=== PATIENT | female | born 1995 | race Caucasian/White ===

== ENCOUNTER → 2018-04-27 11:06 | Outpatient (CLI) | payer BC, SELFPAY ==
[2018-04-27 16:24] LABS: hCG Titer Quant., Serum 16742 mIU/mL (<9 non-preg)
== END ==
PROVIDERS: Visit Provider Obstetrics & Gynecology
DX: O20.0 Threatened abortion (principal)
CPT/HCPCS: 36415; 84702

== ENCOUNTER → 2018-04-29 10:08 | Outpatient (CLI) | payer BC, SELFPAY | PROVIDERS: Visit Provider Obstetrics & Gynecology | DX: O20.0 Threatened abortion (principal) | CPT/HCPCS: 36415; 84702 ==

== ENCOUNTER → 2018-05-12 10:50 | Outpatient (CLI) | payer OTHER, BC, SELFPAY ==
[2018-05-12 13:31] LABS: Chlamydia Trachomatis by PCR Negative (Negative); Neisserai gonorrhoeae by PCR Negative (Negative); Probe Check PASS; Sample Adequacy Control PASS; Specimen Processing Control PASS
== END ==
PROVIDERS: Visit Provider Obstetrics & Gynecology
DX: Z11.3 Encounter for screening for infections with a predominantly sexual mode of transmission (principal); Z34.81 Encounter for supervision of other normal pregnancy, first trimester
CPT/HCPCS: 87491; 87591

== ENCOUNTER → 2018-06-13 10:05 | Outpatient (CLI) | payer OTHER, BC, SELFPAY ==
[2018-06-13 12:41] LABS: Color, Urine Yellow (Yellow); Glucose, Dipstick Normal (Normal); Ketone-Dipstick Negative (Negative); Leukocyte Esterase-Dipstick 500 /ul (Negative); Nitrite-Dipstick Negative (Negative); Occult Blood-Urine Negative /ul (Negative); Protein-Dipstick Negative (Negative); Urine Bilirubin Dipstick Negative (Negative); Urine Clarity Sl. Cloudy (Clear); Urine Urobilinogen Normal (Normal)
[2018-06-13 12:49] LABS: Absolute Lymphocyte Count 2.32 X10^3/ul (0.83-4.51); Absolute Neutrophil Count 6.2 X10^3/uL (2.0-7.7); Basophil# 0.04 X10^3/uL; Basophil% 0.4 % (0-1); Eosinophil# 0.07 X10^3/uL; Eosinophils% 0.8 % (0-5); Hematocrit 39.6 % (37-47); Hemoglobin 13.9 g/dl (12.0-15.0); Lymphocyte # 2.32 X10^3/ul (4.0); Lymphocyte % 25.6 % (19-41); Mean Corp Hgb Conc 35.1 g/gl (32-36); Mean Corpuscular Hgb 31.2 pg (27.0-32.0); Mean Corpuscular Volume 88.8 fL (81-99); Mean Platelet Vol. 10.2 fl (6.2-12.0); Monocyte# 0.45 X10^3/uL; Neutrophil # 6.16 X10^3/uL (2.7-7.7); Neutrophil % 67.9 % (47-70); Platelet Count 272 K/mm3 (150-450); RBC Distribution Width CV 12.3 % (11.6-14.6); RBC Distribution Width SD 39.6 fl (35.1-43.9); Red Blood Count 4.46 M/mm3 (4.2-5.4); White Blood Count 9.1 K/mm3 (4.4-11.0)
[2018-06-13 12:53] LABS: POSITIVE COUNT NO; POSITIVE DIFFERENTIAL NO; POSITIVE MORPHOLOGY NO
[2018-06-13 13:20] LABS: Thyroid Stim Hormone (TSH) 1.82 uIU/mL (0.358-3.74)
[2018-06-13 13:52] LABS: HIV - WCH Non-Reactive (Nonreactive)
[2018-06-14 10:45] LABS: HEPATITIS B SURFACE AG Negative (Negative); Hep C Antibodies <0.1 s/co ratio (0.0-0.9)
[2018-06-16 23:33] LABS: Prenatal RPR NONREACTIVE (NONREACTIVE)
== END ==
PROVIDERS: Visit Provider Obstetrics & Gynecology
DX: Z34.81 Encounter for supervision of other normal pregnancy, first trimester (principal)
CPT/HCPCS: 36415; 80307; 81002; 84443; 85025; 86703; 86762; 86803; 87340

== ENCOUNTER → 2018-08-31 10:17 | Outpatient (CLI) | payer OTHER, SELFPAY ==
[2018-08-31 10:38] LABS: Hematocrit 34.7 % (37-47); Hemoglobin 11.9 g/dl (12.0-15.0); Mean Corp Hgb Conc 34.3 g/gl (32-36); Mean Corpuscular Hgb 30.9 pg (27.0-32.0); Mean Corpuscular Volume 90.1 fL (81-99); Mean Platelet Vol. 9.1 fl (6.2-12.0); Platelet Count 258 K/mm3 (150-450); RBC Distribution Width SD 42.5 fl (35.1-43.9); Red Blood Count 3.85 M/mm3 (4.2-5.4); White Blood Count 8.9 K/mm3 (4.4-11.0)
[2018-08-31 10:42] LABS: Scan Indicated on CBC? Y/N NO
[2018-08-31 11:04] LABS: AST(SGOT) 12 U/L (15-37); Alanine Aminotransfer ALT/SGPT 20 U/L (13-56); Albumin, Serum 2.9 g/dL (3.2-5.0); Alkaline Phosphatase 72 U/L (45-117); Bilirubin, Direct 0.07 mg/dL (0.00-0.30); Globulin 3.2 g/dL (2.2-4.2); Protein, Total 6.1 g/dL (6.4-8.2)
== END ==
PROVIDERS: Visit Provider Obstetrics & Gynecology
DX: R10.11 Right upper quadrant pain (principal); R10.33 Periumbilical pain
CPT/HCPCS: 36415; 80076; 85027

== ENCOUNTER → 2018-10-10 | Outpatient (CLI) | payer OTHER, SELFPAY ==
[2018-10-10 10:57] LABS: Hematocrit 35.4 % (37-47); Hemoglobin 12.3 g/dl (12.0-15.0); Mean Corp Hgb Conc 34.7 g/gl (32-36); Mean Corpuscular Hgb 30.8 pg (27.0-32.0); Mean Corpuscular Volume 88.5 fL (81-99); Mean Platelet Vol. 9.7 fl (6.2-12.0); Platelet Count 285 K/mm3 (150-450); RBC Distribution Width CV 12.2 % (11.6-14.6); RBC Distribution Width SD 38.5 fl (35.1-43.9); White Blood Count 11.6 K/mm3 (4.4-11.0)
[2018-10-10 11:02] LABS: Scan Indicated on CBC? Y/N NO
[2018-10-10 11:10] LABS: Glucose Challenge Gest 1H 50g 131 mg/dL (70-140)
== END | disposition home or self-care (01) ==
PROVIDERS: Visit Provider Obstetrics & Gynecology
DX: Z34.83 Encounter for supervision of other normal pregnancy, third trimester (principal)
CPT/HCPCS: 36415; 82950; 85027; 86850

== ENCOUNTER → 2018-11-08 15:09 | Outpatient (CLI) | payer OTHER, BC, SELFPAY | PROVIDERS: Visit Provider Obstetrics & Gynecology | DX: O23.43 Unspecified infection of urinary tract in pregnancy, third trimester (principal); Z3A.00 Weeks of gestation of pregnancy not specified | CPT/HCPCS: 87086; 87088 ==

== ENCOUNTER → 2018-11-30 16:22 | Outpatient (CLI) | payer OTHER, BC, SELFPAY | PROVIDERS: Visit Provider Obstetrics & Gynecology | DX: Z36.85 Encounter for antenatal screening for Streptococcus B (principal) | CPT/HCPCS: 87081 ==

== ENCOUNTER 2018-12-25 15:00 | Outpatient (CLI) | payer OTHER, SELFPAY ==
[2018-12-25 15:21] VITALS: BMI 35.1
[2018-12-25 16:05] LABS: ROM Internal Control Test YES-OK TO RESULT pt. (Internal QC); ROM Patient Test Negative (Negative)
--- NOTE | 2019-01-27 09:25 | OB.TRI.NOTE ---
- Problem List (1) False labor after 37 completed weeks of gestation Status: Acute History of Present Illness Date of Service: 12/25/18 Was patient seen by the physician?: No Reason For Visit: r/o labor Date of Service: 12/25/18 Final HAILEY: 12/27/18 Final HAILEY Source: US <20 weeks Gestational age: 39 weeks 5 days History of Present Illness: 23yo with c/o painful contractions. Allergies latex Allergy (Verified 12/26/18 07:09) Hives - Pertinent Past Medical History Medical History: Past Medical History (Last Updated 12/26/18 @ 06:23 by Bernice Galo MD) Asthma Laboratory Studies: Laboratory Tests 12/25/18 Range/Units 15:15 Vag Amniotic Fld Detect Negative (Negative) Physical Exam Cervix Dilation (cm): 2 - per ANA [place] Station: -3 Effacement (%): 80 NST - FHR Rate Baby A Baseline: 135 Variability:: Moderate Accelerations:: 15 x 15 Decelerations:: None NST Reactive:: Yes FHR Category:: Category I Uterine Activity:: 05/19 Impression/Plan Reactive NST, Cat I FHR FAlse labor > 37wga d/c home
== END 2018-12-25 16:30 | disposition home or self-care (01) ==
LOC: WPOUT 15:09 → OBT 15:10
PROVIDERS: Visit Provider Obstetrics & Gynecology
DX: O47.1 False labor at or after 37 completed weeks of gestation (principal); Z3A.39 39 weeks gestation of pregnancy; Z91.040 Latex allergy status
CPT/HCPCS: 59025; 59050; 84112; 99218; G0378

== ENCOUNTER 2018-12-25 18:39 | Outpatient (CLI) | payer OTHER, BC, SELFPAY ==
[2018-12-25 15:21] VITALS: BMI 35.1
[2018-12-25 18:45] VITALS: BMI 35.1
[2018-12-25 19:18] LABS: ROM Internal Control Test YES-OK TO RESULT pt. (Internal QC); ROM Patient Test Negative (Negative)
[2018-12-25 20:41] VITALS: BP 134/85; PULSE 66; RESP 18; TEMP 36.8; O2SAT 98
--- NOTE | 2019-01-27 09:33 | OB.TRI.NOTE ---
History of Present Illness Date of Service: 12/25/18 Was patient seen by the physician?: No Reason For Visit: RULE OUT SROM Final HAILEY: 12/27/18 Final HAILEY Source: US <20 weeks Gestational age: 39 5/7wga History of Present Illness: 23yo G1 @ 39 5/7wga with c/o leaking of fluid Allergies latex Allergy (Verified 12/26/18 07:09) Hives - Pertinent Past Medical History Medical History: Past Medical History (Last Updated 12/26/18 @ 06:23 by Bernice Galo MD) Asthma Laboratory Studies: Laboratory Tests 12/25/18 Range/Units 18:45 Vag Amniotic Fld Detect Negative (Negative) Physical Exam Vitals: Vital Signs Temp Pulse Resp BP Pulse Ox 98.2 F 66 18 134/85 H 98 12/25/18 20:41 12/25/18 20:41 12/25/18 20:41 12/25/18 20:41 12/25/18 20:41 Cervix Dilation (cm): 2 - per RN exam Station: -3 Effacement (%): 80 NST - FHR Rate Baby A Baseline: 130 Variability:: Moderate Accelerations:: 15 x 15 Decelerations:: None NST Reactive:: Yes FHR Category:: Category I Uterine Activity:: 05/19 Impression/Plan 23yo G1 @ 39 5/7 wga with false labor -ROM plus negative -d/c home
== END 2018-12-25 20:45 | disposition home or self-care (01) ==
LOC: WPOUT 18:40 → WP 18:41
PROVIDERS: PCP Obstetrics & Gynecology; Visit Provider Obstetrics & Gynecology
DX: O47.1 False labor at or after 37 completed weeks of gestation (principal); Z3A.39 39 weeks gestation of pregnancy; Z91.040 Latex allergy status
CPT/HCPCS: 59025; 59050; 84112; 99218; G0378

== ENCOUNTER 2018-12-26 05:27 | Inpatient (IN) | payer OTHER, SELFPAY ==
[2018-12-25 18:45] VITALS: BMI 35.1
[2018-12-26 06:04] VITALS: BMI 35.1
[2018-12-26] MEDS: Lactated Ringers 1,000 ML 50 ML IV ×2 (06:20→18:58)
--- NOTE | 2018-12-26 06:22 | PCM.HP.OB ---
- Problem List (1) 39 weeks gestation of Status: Acute History Date of Admission: 12/26/18 Final HAILEY: 12/27/18 Final AHILEY Source: US <20 weeks Gestational age: 39 Weeks and 6 Days History of this : This is a 23 year-old, G [1], P [0], at 39 6/7 weeks gestational age with c/o leaking of fluid at 1100pm last night. + FM, + contractions. No vaginal bleeding. Medical History: Medical History (Last Updated 12/26/18 @ 06:23 by Bernice Galo MD) Asthma J45.909 Allergies latex Allergy (Verified 12/25/18 15:19) Hives Home Medications: Home Medications Beclomethasone Diprop Inhaler [Qvar 80 Mcg Inhaler] 1 puff INHALATION PRN PRN 12/25/18 Vit No.130/Iron/Folic [ Tablet] 1 ea PO 12/25/18 Number of Fetus(es): 1 NST - FHR Rate Baby A Baseline: 125 Variability:: Moderate Accelerations:: 15 x 15 Decelerations:: None NST Reactive:: Yes FHR Category:: Category I Uterine Activity:: 2-510 History Labs: Mom's Problem List Problem Status Onset Code 39 weeks gestation of Acute Z3A.39 Mom's Labs & Results 12/26/18 12/26/18 06:20 06:20 WBC 10.2 RBC 3.59 L Hgb 11.3 L Hct 31.7 L MCV 88.3 MCH 31.5 MCHC 35.6 RDW Std Deviation 41.3 RDW Coeff of Allyson 12.8 Plt Count 244 MPV 10.2 Immature Gran % (Auto) 0.600 Neut % (Auto) 71.1 H Lymph % (Auto) 20.8 [place] % (Auto) 6.5 Eos % (Auto) 0.5 Baso % (Auto) 0.5 Absolute Neuts (auto) 7.2 Absolute Lymphs (auto) 2.12 Nucleated RBC % 0 Blood Type Pending Antibody Screen Pending Course Did the patient receive Yes care? Labs Blood Type: O RH: NEGATIVE RPR/VDRL/Syphilis Nonreactive Rubella status Immune HbSAg Negative Date Done: 06/13/18 Chlamydia Negative Gonorrhea Negative HIV/AIDS Non-Reactive Group B Strep: Negative Current Obstetrical History Gestational Diabetes No Incompetent Cervix No Infertility No IUGR No Macrosomia No Hypertension/Pre-eclampsia No Placenta Previa/Abruption No PTL/PROM No Uterine anomaly No Oligohydramnios No Polyhydramnios No Multiple gestation No Past Medical History Asthma Yes: exercised induced Diabetes No Hypertension No Heart disease No Mitral valve prolapse No Neurologic/Seizure disorder/ No Migraines Kidney disease No Liver disease No Varicosities No Clotting disorders/Hx of DVT No Thyroid Dysfunction No Other medical diseases No Psychiatric disorders No Major trauma No Abnormal PAP smear No Sleep apnea No Mammogram in the last 2 years No Social History Marital Status: SINGLE Alleged father Barney Richardson Hx Smoking No Smoking Status Never smoker Expected Infant Delivery Method: Spontaneous Vaginal Number of Visits: 15 Review of Systems Constitutional: Denies: Fever Respiratory: Denies: Cough, Shortness of Breath, Wheezing Gastrointestinal: Denies: Nausea Gynecological: Denies: Vaginal bleeding Physical Exam Vitals: AVSS General: Alert, Oriented x3, Cooperative, No apparent distress HEENT: Atraumatic, Normocephalic Cardiovascular: Regular rate, Regular Rhythm, Normal S1, Normal S2 Lungs: Clear to auscultation, Normal air movement Abdomen: Soft, Non Tender, Non-Distended, Gravid Extremities:: No edema, No tenderness/swelling Neurological: Neuro grossly intact SHREDDER PICKER: Normal external genitalia Estimated gestational size: Appropriate for gestational size Presentation: Cephalic Cervix Dilation (cm): 2.5 - per ANA [place] exam Station: -2 Effacement (%): 80 Assessment/Plan All Active Problems (Last Updated 12/26/18 @ 06:23 by Bernice Galo MD) 39 weeks gestation of (Acute) This is a 23 year-old, G [1], P [0], at 39 6/7 weeks gestational age with gross rupture of membranes, Cat I FHR -Bedside US confirms cephalic presentation -Start pitocin for augmentation, >6 hours since rupture of membranes. r/b pitocin reviewed including potential effects of tachysystole. -Consents signed and reviewed - discussed various risks including but not limited to bleeding, infection, bowel or bladder injury, VTE, possible need for vacuum delivery, delivery, or need for further surgery, risk for to mother and/or fetus. Reviewed internal monitoring as indicated -Nexplanon desired -Patient in agreement with plan. Given opportunity to ask questions and questions answered to her satisfaction. - status overall reassuring
[2018-12-26 06:39] LABS: Absolute Lymphocyte Count 2.12 X10^3/uL (0.83-4.51); Absolute Neutrophil Count 7.2 X10^3/uL (2.0-7.7); Basophil# 0.05 X10^3/uL; Basophil% 0.5 % (0-1); Eosinophil# 0.05 X10^3/uL; Eosinophils% 0.5 % (0-5); Hematocrit 31.7 % (37-47); Hemoglobin 11.3 g/dL (12.0-15.0); Lymphocyte # 2.12 X10^3/ul (4.0); Lymphocyte % 20.8 % (19-41); Mean Corp Hgb Conc 35.6 g/dL (32-36); Mean Corpuscular Hgb 31.5 pg (27.0-32.0); Mean Corpuscular Volume 88.3 fL (81-99); Mean Platelet Vol. 10.2 fl (6.2-12.0); Monocyte# 0.66 X10^3/uL; Monocyte% 6.5 % (0-10); NRBC Flagged by Analyzer 0 % (0-5); Neutrophil # 7.23 X10^3/uL (2.7-7.7); Neutrophil % 71.1 % (47-70); Platelet Count 244 K/mm3 (150-450); RBC Distribution Width CV 12.8 % (11.6-14.6); RBC Distribution Width SD 41.3 fl (35.1-43.9); Red Blood Count 3.59 M/mm3 (4.2-5.4); White Blood Count 10.2 K/mm3 (4.4-11.0)
[2018-12-26] MEDS: Oxytocin 30 units/NS 500 ml 30 UNITS/500 ML IV.SOLN IV (07:41)
[2018-12-26] MEDS: Nalbuphine 10 MG/ML Ampul IV (13:02)
--- NOTE | 2018-12-26 13:35 | PCM.PN.BLA ---
Progress Note LABOR PROGRESS NOTE Contractions are regular and intensifying. AVSS GEN - NAD, AAO x 3 FHR 130, moderate variability, + accelerations, no decelerations TOCO 4-5/10 min SVE 4/80/-2 MVI 170-190 A/P: 23yo G1 @ 39 6/7wga in latent labor, Cat I FHR -Continue to titrate pitocin to adequate as tolerated by mother and fetus
[2018-12-26] MEDS: Lactated Ringers 1,000 ML 999 ML IV (15:59)
[2018-12-26] MEDS: fentaNYL-bupivacaine (epidural) 100 ML BAG EPIDURAL ×2 (16:20→20:48)
[2018-12-26] MEDS: Ondansetron 4 MG/2 ML Vial IV (18:58)
[2018-12-27] VITALS (20 sets, daily range): BP systolic 106–132; BP diastolic 56–79; PULSE 89–119; RESP 16–18; TEMP 35.8–36.4; O2SAT 94–100
[2018-12-27] MEDS: Lactated Ringers 1,000 ML 50 ML IV ×2 (00:11→05:35)
[2018-12-27] MEDS: fentaNYL-bupivacaine (epidural) 100 ML BAG EPIDURAL ×2 (01:20→05:37)
[2018-12-27] MEDS: Acetaminophen 325 MG Tablet PO (04:59)
--- NOTE | 2018-12-27 07:09 | PN.OBGYN_ITS ---
Patient Problems: Active and Suspected Problems (Last Updated 12/26/18 @ 06:23 by Bernice Ashley MD) 39 weeks gestation of (Acute) Subjective: Patient has slowly progressed to complete and pushing during the night. She is now pushed for approximately 3 hours. Baby station was +1 to +2 and given maternal fever of 100.8 F at approximately 5 AM penicillin was started and patient was given Tylenol. However, despite 3 hours of pushing and 5 pulls with the Kiwi vacuum with a single pop-off there was no forward advancement of the head. Given this, we will proceed with primary section for failure to progress and suspected CPD as well as suspected chorioamnionitis. Discussed RBA's with patient and her and all questions were answered. - Physical Exam Weight: 186 lb Body Mass Index (BMI) 35.1 Intake and Output for Last 24 Hours 12/25/18 12/26/18 12/27/18 23:59 23:59 23:59 Intake Total 2801 / 2801 Output Total 2700 / 2700 700 / 700 Balance 101 / 101 -700 / -700 Laboratory Tests Past 24 Hrs 12/26/18 06:20 Blood Type O NEGATIVE Antibody Screen NEGATIVE Medical Necessity - Tobacco Use Smoking Status: Never smoker Assessment/Plan All Active Problems (Last Updated 12/26/18 @ 06:23 by Bernice Galo MD) 39 weeks gestation of (Acute)
[2018-12-27] MEDS: Sodium Citrate/Citric Acid 30 ML UDC PO (07:10)
--- NOTE | 2018-12-27 08:45 | OP.PCM_ITS ---
Delivery Classification: LANI Final HAILEY: 12/27/18 Final HAILEY Source: US <20 weeks Gestational age: 40 Weeks and 0 Days doctor who attended delivery (if requested by OB): Salvador Salinas Indications: Failure to Progress, Cephalopelvic Disproportion, Suspected Chorioamnionitis Description of Procedure: Surgeon: Surendra Paige MD, FACOG Metal Flow Coordinator: ORQUIDEA Chapman Anesthesia: Nadir Aguirre CRNA Anesthesia: Epidural with Duramorph Pre-op Diagnosis: Failure to Progress, Suspected Cephalopelvic Disproportion, Suspected Chorioamnionitis Post-Op Diagnosis: Failure to Progress, Cephalopelvic Disproportion, Suspected Chorioamnionitis Procedure: Primary Low Transverse Cervical Caesarean Section Findings: Viable male with Apgars of 9/9 in occiput anterior presentation with clear amniotic fluid and normal three-vessel placenta. Baby weighed 9 pounds 8 ounces. Indication: This is a 23-year-old who presented in active labor at 39+ weeks gestation. care has otherwise been uneventful. She progressed to complete and pushing and after 3 hours vacuum was applied but the station did not progress. Baby was slightly tachycardic and just before delivery maternal fever was 101.8F. Given this it was decided to proceed with primary section. The patient has been counseled regarding the risk and indications of this procedure including the possibility of bleeding infection and injury to surrounding structures such as bowel bladder. All questions were answered. Procedure: Patient was taken to the operating room where after spinal anesthesia was placed, the patient was prepped and draped in usual sterile fashion and a Smith catheter was placed. The abdomen was entered through a Pfannenstiel incision and peritoneum was entered bluntly. After developing a bladder flap on the lower uterine segment a low transverse incision was made on the uterus and head was easily delivered onto the operative field the nose mouth and oropharynx were bulb suctioned. Subsequently a viable male infant was born with Apgars of 9/9. The infant was noted to cry move all extremities vigorously on the operative field. The umbilical cord was doubly clamped and ligated and handed to the nursery personnel who were present for the delivery. Placenta was delivered and noted to be 3 vessels and normal. Uterus was exteriorized and remaining placental tissue was removed. The uterus was then closed in 2 layers first with running locked 0 Vicryl suture followed by a second imbricating layer with 0 Vicryl suture. 0 Vicryl suture was then used in a horizontal mattress interrupted fashion to affect final hemostasis of the uterine incision line. Normal fallopian tubes and ovaries were visualized and the uterus was returned to the pelvis. Hemostasis was noted and rectus abdominis muscles were reapproximated in the midline with interrupted Number 0 Vicryl suture in a horizontal mattress fashion. Fascia was closed with running Number 1 PDS Strata fix suture. Subcutaneous tissue was irrigated with copious amouts of saline solution and then closed with running 3-0 Vicryl suture. Skin was closed with 4-0 monocryl suture in a running subcuticular fashion. Steri strips, telfa, and tape were placed across the incision. The patient tolerated the procedure well and was taken to the recovery room in satisfactory condition. Sponge, needle, and instrument counts were all reportedly correct. EBL was 750 cc. Cefotan 2 gms IV was given prior to the procedure. Spicemen to Pathology: Placenta Complications: None Amniotic Membrane Rupture Type: Spontaneous Amniotic Fluid Description: Clear Placenta Disposition: Sent to Pathology Specimen(s) sent to pathology: Renita Drain: Smith to straight drain Fluids Replaced: Crystalloid Cord Entanglement: None Cord Vessel Description: 3 Vessels Esitmated Blood Loss (ml): 750 cc Infant Gender: Male (1 minute): 9 (5 minute): 9 Pre-op Antibiotic Given: Cefotan 2gm IV x1 Pt instructed on risks of surgery: Bleeding, Infection, Injury to surrounding structure(s) including bowel and bladder - Admit VTE Documentation VTE Present on Admission: Yes VTE Mechan Device Prophylaxis: SCD's
--- NOTE | 2018-12-27 08:56 | DCINST_ITS ---
Discharge Diet: No Restrictions Discharge Activity: May not drive while taking narcotic pain medications., May Shower, May Take a Tub Bath May resume sexual activity in: 4-6 weeks Lifting Restrictions: 20 pounds Additional Activity Instructions:: Nothing in the vagina for 4-6 weeks. You may return to work/school in 6 weeks. Call your doctor if your incision/area has: Continuous Slow Oozing, Sudden Increased Bleeding, Increased Pain/ Swelling, Increased Redness, Foul Smelling Discharge Call your doctor if you observe: Fever of 101 or Higher, Inability to urinate, Inability to have a bowel movement, Using more than one pad per hour Additional Instructions: If you experience any of the following, contact your healthcare provider. * Bleeding that soaks a pad every hour for 2 hours * Unrelieved incision or abdominal pain * Swelling, redness, discharge or bleeding from your incision or episiotomy site * Your incision begins to separate * Problems urinating (including inability to urinate or burning while urinating). * Visual changes * Severe headache * Flu-like symptoms * Pain or redness in one of both of your breasts * Pain, warmth, tenderness or swelling in your legs, especially the calf area * Frequent nausea and vomiting * Symptoms of depression or anxiety If you experience any of the following, call 911 or go to the nearest Emergency Room. * Chest pain * Problems breathing * Seizure activity * Partial or complete paralysis of a body part, slurred speech, weakness or drooping of the face, or a sudden inability to walk or hold your balance Allergies/Adverse Reactions: Allergies latex Allergy (Verified 12/26/18 07:09) Hives Medications to take at Discharge Beclomethasone Diprop Inhaler [Qvar 80 Mcg Inhaler] 1 puff INHALATION PRN PRN 12/25/18 Vit No.130/Iron/Folic [ Tablet] 1 ea PO DAILY 12/25/18 Docusate Sodium [Colace] 100 mg PO BID PRN PRN #60 cap 12/27/18 Oxycodone [Oxyir] 5 mg PO Q6H PRN PRN 7 Days #20 tab 12/27/18 The following prescriptions were given: Docusate Sodium [Colace] 100 mg PO BID PRN PRN #60 cap PRN Reason: Constipation Prescription Printed Oxycodone [Oxyir] 5 mg PO Q6H PRN PRN 7 Days #20 tab PRN Reason: Severe Pain (6-02/16) Prescription Printed Follow-Up: Call to make an appointment with your doctor for an incision check in 1-2 weeks. You will also need a 6 week post- follow up appointment. Test results from this visit will be discussed in further detail at your follow- up appointment, if applicable. Please Follow Up With: Surendra Paige MD - [phone] When: Call to make an appointment for an incision check in 2 weeks.
--- NOTE | 2018-12-27 09:10 | PLAC_PTH ---
PATIENT: VICTOR MANUEL CLEMENTE LOC: WP U#:[id number] AGE/SX: 23/ ROOM: WP008 RE12/26/[address]: Dr. Surendra Paige MD : 1995 BED: 1 DIS: 12/29/2018 SPEC #: [id number] RECD: 12/27/18 09:36 STATUS: CHRIS TAYLER #: [id number] LAUREN: 12/27/18 09:[address]: Surendra Paige DEPT: SURGICAL PATHOLOGY RECD BY: Adán Gutierrez ENTERED: 12/27/18 13:06 SP TYPE: PLACENTA OTHR DR: Dr. Bernice Ashley MD Tissues: Placenta, NOS Procedures: Surgery Specimen Level V HEADER OPERATION: Primary section PRE-OP DIAGNOSIS: Suspected chorioamnionitis TISSUE SUBMITTED: Placenta MICROSCOPIC DIAGNOSIS Placenta: Placental disc - third trimester placenta with a succenturiate lobe (715 gm). - Focal acute vasculitis of subamniotic blood vessels. Membranes - moderate to marked acute chorioamnionitis. Umbilical cord - three blood vessels and moderate to marked acute funisitis. SJ:isabella 12/29/18 MICROSCOPIC DESCRIPTION Slides are reviewed. GROSS DESCRIPTION SPECIMEN: PLACENTA / CLINICAL INFORMATION: A. Weight: 4.297 kg B. Gestational Age: 40 weeks C. Sex: Male PLACENTAL WEIGHT (Received fresh and then post fixed in formalin after specimen for culture was taken in microbiology): 715 gm PLACENTAL DIMENSIONS: 22 x 20 x 3.5 cm. A succenturiate lobe is noted measuring 7.5 x 6 x 1 cm. PLACENTAL SHAPE: Usual ovoid PLACENTAL WEIGHT FOR GESTATIONAL AGE: >99th percentile MEMBRANES - Present A. Insertion: Marginal B. Site of rupture from edge: 5 cm from edge of placental disc C. Color of membrane: Emanuel-rodriguez D. Abnormalities: None UMBILICAL CORD - Present A. Color: Emanuel-rodriguez B. Insertion: Paracentral C. Length: 34 cm D. Diameter: 1.5 cm E. Number of vessels: Three F. Abnormalities: None PLACENTAL DISC - Present A. Color of surface: Emanuel-rodriguez B. surface abnormalities: None C. Maternal cotyledons: Intact with minimal tears D. Attached retro placental clot: No clot E. Cut surface: Dark red and spongy F. Lesions: None G. Separate clot: Absent SECTIONS SUBMITTED: 1. Membrane roll 2. Cord, maternal end, succenturiate lobe 3. Cord, end, succenturiate lobe 4. Placental disc, and maternal surfaces 5. Placental disc, and maternal surfaces 6. Placental disc, and maternal surfaces TWILA:isabella 12/28/18 TC:2 CPT: 92880
[2018-12-27] MEDS: Oxytocin 30 units/NS 500 ml 30 UNITS/500 ML IV.SOLN 167 UNITS IV (09:26)
[2018-12-27 09:35] LABS: Pathology Specimen OB SEE PATHOLOGY REPORT
[2018-12-27] MEDS: Lactated Ringers 1,000 ML 100 ML IV (12:26)
[2018-12-27] MEDS: Ketorolac 30 MG/ML Syringe IV ×2 (14:48→19:59)
[2018-12-27] MEDS: 0.9% Saline Lock 10 ML Syringe 5 ML IV (19:59)
[2018-12-28] VITALS (10 sets, daily range): BP systolic 100–117; BP diastolic 54–76; PULSE 85–118; RESP 16–18; TEMP 36.1–37; O2SAT 96–100
[2018-12-28] MEDS: 0.9% Saline Lock 10 ML Syringe 5 ML IV ×3 (02:53→15:28)
[2018-12-28] MEDS: Ketorolac 30 MG/ML Syringe IV ×3 (02:53→15:27)
[2018-12-28 06:11] LABS: Hematocrit 23.7 % (37-47); Hemoglobin 8.5 g/dL (12.0-15.0); Mean Corp Hgb Conc 35.9 g/dL (32-36); Mean Corpuscular Hgb 31.8 pg (27.0-32.0); Mean Corpuscular Volume 88.8 fL (81-99); Mean Platelet Vol. 10.5 fl (6.2-12.0); Platelet Count 192 K/mm3 (150-450); RBC Distribution Width CV 12.9 % (11.6-14.6); RBC Distribution Width SD 41.9 fl (35.1-43.9); Red Blood Count 2.67 M/mm3 (4.2-5.4); White Blood Count 23.3 K/mm3 (4.4-11.0)
[2018-12-28] MEDS: Acetaminophen 500 MG Tablet 1000 MG PO (08:52)
--- NOTE | 2018-12-28 10:15 | PN.OBGYN_ITS ---
Patient Problems: Active and Suspected Problems (Last Updated 12/26/18 @ 06:23 by Bernice Ashley MD) 39 weeks gestation of (Acute) Subjective: Patient without complaints. Tolerating diet well. Denies flatus. Pain well controlled. - Physical Exam Vital Signs Temp Pulse Resp BP Pulse Ox 98.6 F 113 H 18 117/76 98 12/28/18 08:50 12/28/18 08:50 12/28/18 08:50 12/28/18 08:50 12/28/18 08:15 Oxygen Delivery Method Room Air Weight: 186 lb Body Mass Index (BMI) 35.1 Intake and Output for Last 24 Hours 12/26/18 12/27/18 12/28/18 23:59 23:59 23:59 Intake Total 2801 / 2801 3426.67 / 3426.67 400 / 400 Output Total 2700 / 2700 2250 / 2250 1600 / 1600 Balance 101 / 101 1176.67 / 1176.67 -1200 / -1200 Microbiology Past 72 Hours 12/27/18 09:36 Gram Stain - Final Other - Placenta Laboratory Tests Past 24 Hrs 12/27/18 12/28/18 14:40 05:55 WBC 23.3 H RBC 2.67 L Hgb 8.5 L Hct 23.7 L MCV 88.8 MCH 31.8 MCHC 35.9 RDW Std Deviation 41.9 RDW Coeff of Allyson 12.9 Plt Count 192 MPV 10.5 Screen NEGATIVE Baby's Blood Type O POSITIVE Baby's PREETI NEGATIVE Wound is clean, dry, intact. Hemoglobin as expected showing anemia from surgical blood loss. Medical Necessity - Tobacco Use Smoking Status: Never smoker Assessment/Plan All Active Problems (Last Updated 12/26/18 @ 06:23 by Bernice Galo MD) 39 weeks gestation of (Acute) Doing well postoperative day #1 status post primary section. Continuing present care. Will repeat CBC tomorrow to confirm stable and confirm white count has diminished.
[2018-12-28] MEDS: Ibuprofen 600 MG Tablet PO (21:22)
[2018-12-28] MEDS: Budesonide Respules 0.5 MG/2 ML AMPUL.NEB. INHALATION (21:37)
[2018-12-28] MEDS: oxyCODONE 5 MG Tablet PO (22:20)
[2018-12-29 02:45] VITALS: BP 110/75; PULSE 95; RESP 18; TEMP 35.7
[2018-12-29] MEDS: Acetaminophen 500 MG Tablet 1000 MG PO ×2 (02:57→11:36)
[2018-12-29 05:51] LABS: Absolute Neutrophil Count 17.3 X10^3/uL (2.0-7.7); Basophil# 0.04 X10^3/uL; Basophil% 0.2 % (0-1); Eosinophils% 0.5 % (0-5); Hematocrit 23.2 % (37-47); Lymphocyte % 7.9 % (19-41); Mean Corp Hgb Conc 34.5 g/dL (32-36); Mean Corpuscular Hgb 31.4 pg (27.0-32.0); Mean Platelet Vol. 10.7 fl (6.2-12.0); Monocyte# 0.66 X10^3/uL; Monocyte% 3.3 % (0-10); NRBC Flagged by Analyzer 0 % (0-5); Neutrophil # 17.27 X10^3/uL (2.7-7.7); Neutrophil % 85.8 % (47-70); POSITIVE MORPHOLOGY YES; Platelet Count 218 K/mm3 (150-450); RBC Distribution Width CV 13.2 % (11.6-14.6); RBC Distribution Width SD 43.8 fl (35.1-43.9); Red Blood Count 2.55 M/mm3 (4.2-5.4); White Blood Count 20.1 K/mm3 (4.4-11.0)
[2018-12-29 06:23] LABS: Differential Indicated SCAN CRITERIA MET
[2018-12-29 06:27] LABS: Differential Comment SCANNED
[2018-12-29] MEDS: Etonogestrel 68 MG IMPLANT SQ (08:03)
--- NOTE | 2018-12-29 08:08 | PN.OBGYN_ITS ---
Patient Problems: Active and Suspected Problems (Last Updated 12/26/18 @ 06:23 by Bernice Ashley MD) 39 weeks gestation of (Acute) Subjective: Reports severe pain overnight, now resolved. Passing flatus now. Denies nausea or vomiting. No heavy lochia. Objective: avss - Physical Exam General: Alert, Oriented x3, Cooperative, No apparent distress HEENT: Atraumatic, Normocephalic Lungs: Normal air movement Cardiovascular: Regular rate, Regular Rhythm, Normal S1, Normal S2 Abdomen: Bowel Sounds Present, Soft, Non Tender, Non-Distended, - - Fundus firm and nontender Extremities: No edema, No Calf Tenderness Neurological: Neuro grossly intact Psych/Mental Status: Normal Affect, Appropriate, Alert and oriented to time, place, person, mood and affect Vital Signs Temp Pulse Resp BP Pulse Ox 96.2 F L 95 18 110/75 98 12/29/18 02:45 12/29/18 02:45 12/29/18 02:45 12/29/18 02:45 12/28/18 08:15 Oxygen Delivery Method Room Air Weight: 84.368 kg Body Mass Index (BMI) 35.1 Intake and Output for Last 24 Hours 12/27/18 12/28/18 12/29/18 23:59 23:59 23:59 Intake Total 3426.67 / 3426.67 880 / 880 Output Total 2250 / 2250 1999 / 1999 Balance 1176.67 / 1176.67 -1120 / -1120 Microbiology Past 72 Hours 12/27/18 09:36 Gram Stain - Final Other - Placenta Tissue Culture - Preliminary Alpha hemolytic organism Laboratory Tests Past 24 Hrs 12/29/18 05:20 WBC 20.1 H RBC 2.55 L Hgb 8.0 L Hct 23.2 L MCV 91.0 MCH 31.4 MCHC 34.5 RDW Std Deviation 43.8 RDW Coeff of Allyson 13.2 Plt Count 218 MPV 10.7 Immature Gran % (Auto) 2.300 H Neut % (Auto) 85.8 H Lymph % (Auto) 7.9 L [place] % (Auto) 3.3 Eos % (Auto) 0.5 Baso % (Auto) 0.2 Absolute Neuts (auto) 17.3 H Absolute Lymphs (auto) 1.60 Nucleated RBC % 0 Differential Comment SCANNED Medical Necessity - Tobacco Use Smoking Status: Never smoker Assessment/Plan All Active Problems (Last Updated 12/26/18 @ 06:23 by Bernice Galo MD) 39 weeks gestation of (Acute) This is a 23 year-old, G [1],P[1] POD#2 s/p PLTCS -Rh negative, infant Rh positive - Rhogam given -Routine postop care -Discussed PPBC, Nexplanon placed - see procedure note
--- NOTE | 2018-12-29 08:13 | OP.PCM_ITS ---
Problem List (1) Contraception management Status: Acute Qualifiers: Contraceptive encounter type: initial prescription Contraceptive type: implantable subdermal Qualified Code(s): Z30.017 - Encounter for initial prescription of implantable subdermal contraceptive (2) Encounter for surveillance of implantable subdermal contraceptive Status: Acute Report of Operation Date of Procedure: 12/29/18 Pre-Operative Diagnosis: Contraception desired Post-Operative Diagnosis: Contraception desired Surgery/Procedure Performed:: Nexplanon insertion Type of Anesthesia:: Local Estimated Blood Loss (mL): <1 Description of Procedure: Reviewed with patient Nexplanon, mechanism, duration of action, placement risks and potential side effects. Discussed contraceptive alternatives including FABM, barrier methods, CHCs, D epoProvera, LVG IUD and Paragard IUD. Patient desired to proceed and consents signed. Patient given opportunity to ask questions and questions answered to her satisfaction. The left arm was marked 3cm inferior to the sulcus and 8-10cm proximal to the medial epicondyle. The site was prepped with chlorhexidine. 2cc of 1% lidocaine was injected. The Nexplanon applicator was inserted at approximately 20-30 degree angle with the skin and inserted to the full length. The blade was retracted and the implant released. The implant was palpated by myself and the patient. Steristrips were placed over the site and the arm was wrapped. Patient advised to call for bruising or swelling > 2inches, signs of infection or non palpable implant. Patient tolerated the procedure well. - Complications none - Admit VTE Documentation VTE Present on Admission: No
[2018-12-29] MEDS: Senna/Docusate Sodium 1 Tablet PO (08:16)
[2018-12-29] MEDS: Ibuprofen 600 MG Tablet PO (08:16)
[2018-12-29 08:19] VITALS: BP 120/66; PULSE 98; RESP 16; TEMP 35.6; O2SAT 98
[2018-12-29 11:47] VITALS: BP 117/79; PULSE 81; RESP 16; TEMP 36.5; O2SAT 97
== END 2018-12-29 12:20 | disposition home or self-care (01) | DRG 786 ==
PROVIDERS: Admitting Provider Obstetrics & Gynecology; Referring Provider Obstetrics & Gynecology; Visit Provider Obstetrics & Gynecology
DX: O62.2 Other uterine inertia (principal); O41.1230 Chorioamnionitis, third trimester, not applicable or unspecified; O33.9 Maternal care for disproportion, unspecified; Z3A.39 39 weeks gestation of pregnancy; Z37.0 Single live birth; O26.893 Other specified pregnancy related conditions, third trimester; Z67.91 Unspecified blood type, Rh negative; Z30.017 Encounter for initial prescription of implantable subdermal contraceptive; O99.52 Diseases of the respiratory system complicating childbirth; J45.909 Unspecified asthma, uncomplicated
CPT/HCPCS: 59025; 59050; 85025; 85027; 85461; 86850; 86900; 86901; 87070; 87075; 87077; 87205; 88307; 90384; 94640; 99218; J7120; A4216; G0378; J2405; J2790; J3490

== ENCOUNTER 2020-01-15 08:04 | Emergency (ER) | payer OTHER, SELFPAY ==
[2020-01-15 08:05] VITALS: BP 127/74; PULSE 70; RESP 18; TEMP 36.6; O2SAT 100; BMI 27.3
--- NOTE | 2020-01-15 08:20 | ED.DCSUM_ITS ---
- ER Visit Summary Date of Service: 01/15/20 Chief Complaint: Left flank pain History of Present Illness: The patient is a 24 F presenting with left flank pain. She states this started on . Patient has had subjective fever, nausea, vomiting, dysuria, and hematuria. She was started on Cipro on by her primary care physician for kidney infection. She has taken Vicodin at home for pain. She presents today for persistent pain in left flank. Denies other complaints. Physical Examination: Vitals are stable. Patient is afebrile. Alert no acute distress. HEENT exam is unremarkable. Neck is supple. Lungs are clear and equal bilaterally. Heart is regular rate and rhythm. Abdomen is soft mild left lower quadrant tenderness with no guarding or rebound Back left CVA tenderness Extremities are unremarkable. Skin is warm and dry. Remainder of exam is unremarkable. Emergency Department Course and Treatment: hCG negative. Urinalysis shows positive leukocytes and positive nitrite, 0 white blood cells, 0-5 red blood jerry ls. Urine culture was sent. CT flank shows 5 mm obstructing left distal ureteral stone with mild left hydroureteronephrosis. On repeat evaluation, patient is feeling improved and is resting comfortably. She is given prescription for Percocet and Zofran. She is advised to follow-up with Dr. Thomas. Advised return to ED for worsening complaints. Disposition: Discharge home Impression: Urolithiasis This note was generated with [employer] dictation software. It may contain incorrect words, spelling, and punctuation that were not noted in review of the chart prior to signing ED Disposition - Plan for ED Patient: Instructions: ED Renal Stone w Colic Prescriptions: Oxycodone HCl/Acetaminophen [Percocet 5/325] 1 tab PO Q6H PRN PRN 3 Days #12 tab PRN Reason: Pain Prescription Printed Referrals: Lynne Rubi MD [Primary Care Provider] - Abdulaziz Thomsa MD [STAFF PHYSICIAN] -
[2020-01-15 08:23] LABS: Mucous, Urine 0 SEEN /hpf (<or=2+); Squamous Epithelial Cells - UA 0 SEEN /hpf (5-10); White Blood Cells 0 SEEN /hpf (0-5)
[2020-01-15 08:26] LABS: Color, Urine SEE COMMENT BELOW (Yellow); Glucose, Dipstick Normal (Normal); Ketone-Dipstick Negative (Negative); Leukocyte Esterase-Dipstick 25 /ul (Negative); Nitrite-Dipstick Positive (Negative); Occult Blood-Urine 250 /ul (Negative); Protein-Dipstick 30 mg/dl (Negative); Specific Gravity, Urine 1.015 (1.002-1.030); Urine Bilirubin Dipstick 6 mg/dL (Negative); Urine Clarity Clear (Clear); Urine Urobilinogen 8 mg/dl (Normal); Urine pH 6.5 (5.0 - 8.0)
[2020-01-15 08:30] LABS: Internal QC Validated? YES +Cl - CLEAR BKGD; Pregnancy, Urine Negative Negative
[2020-01-15 08:31] LABS: Red Blood Cells-Urine 0-5 SEEN /hpf (0-5)
[2020-01-15 08:32] LABS: Bacteria RARE /hpf (None Seen)
--- NOTE | 2020-01-15 08:32 | CT_ITS ---
STUDY: CT ABDOMEN AND PELVIS WITHOUT CONTRAST REASON FOR EXAM: Female, 24 years old. LEFT FLANK PAIN RADIATION DOSAGE (If Supplied By Facility): CTDIvol = ( 7.02 ) mGy, DLP = ( 352.50 ) mGycm TECHNIQUE: Transaxial images were obtained from the dome of the diaphragm to the symphysis pubis without oral contrast, and without intravenous contrast. Sagittal and coronal images were reconstructed. Individualized dose optimization techniques were used for this CT. COMPARISON: None. FINDINGS: Lung bases: Unremarkable. Heart: Unremarkable. Liver: Unremarkable. Gallbladder/biliary ducts: Unremarkable. Pancreas: Unremarkable. Spleen: Unremarkable. Adrenal glands: Unremarkable. Kidneys/ureters/bladder: Mild left hydroureteronephrosis. 5 mm obstructing distal left ureteral stone (axial image 151 series 2 and coronal image 52 series 601). Uterus/adnexa: Small pelvic phleboliths. Physiologic appearance of the uterus and adnexal regions. Large bowel/small bowel: Unremarkable. Appendix: Unremarkable (axial image 135 series 2). Gastroesophageal junction/stomach: Unremarkable. Retroperitoneum/lymph nodes: No intra-abdominal free air. Trace pelvic free fluid. No pathologically enlarged lymph nodes. Vascular: Unremarkable. Osseous structures: Unremarkable. Subcutaneous/soft tissues: Small fat-containing umbilical hernia. No acute process. CT/Abdomen/Pelvis without Cont IMPRESSION: 5 mm obstructing left distal ureteral stone with mild left hydroureteronephrosis Trace pelvic free fluid Electronically Signed: Ethan Garner DO at 8:54 EDT Tel , Service support ,
--- NOTE | 2020-01-15 09:21 | ED.DEP ---
ED Disposition - Plan for ED Patient: Instructions: ED Renal Stone w Colic Prescriptions: Oxycodone HCl/Acetaminophen [Percocet 5/325] 1 tab PO Q6H PRN PRN 3 Days #12 tab PRN Reason: Pain Prescription Printed Referrals: Lynne Rubi MD [Primary Care Provider] - Abdulaziz Thomas MD [STAFF PHYSICIAN] -
--- NOTE | 2020-01-15 09:25 | ED.DEP ---
ED Disposition - Plan for ED Patient: Instructions: ED Renal Stone w Colic Prescriptions: Oxycodone HCl/Acetaminophen [Percocet 5/325] 1 tab PO Q6H PRN PRN 3 Days #12 tab PRN Reason: Pain Prescription Printed Ondansetron [Zofran Odt] 4 mg PO Q8H PRN PRN #10 tab PRN Reason: Nausea Prescription Printed Referrals: Lynne Rubi MD [Primary Care Provider] - Abdulazzi Thomas MD [STAFF PHYSICIAN] -
[2020-01-15 09:32] VITALS: BP 119/72; PULSE 71; RESP 16; O2SAT 98
== END 2020-01-15 09:33 | disposition home or self-care (01) ==
LOC: ED 08:36
PROVIDERS: Emergency Provider Emergency Medicine; PCP Family Medicine
DX: N13.2 Hydronephrosis with renal and ureteral calculous obstruction (principal)
CPT/HCPCS: 74176; 81001; 81025; 87086; 99282

== ENCOUNTER 2020-09-15 04:09 | Emergency (ER) | payer OTHER, SELFPAY ==
[2020-09-15 04:10] VITALS: BP 118/77; PULSE 89; RESP 14; TEMP 36.8; O2SAT 99; BMI 23.9
--- NOTE | 2020-09-15 04:43 | CT_ITS ---
STUDY: CT ABDOMEN AND PELVIS WITH CONTRAST REASON FOR EXAM: Female, 25 years old. Right upper quadrant abdominal pain -- IV PO Contrast RADIATION DOSAGE (If Supplied By Facility): CTDIvol = ( 9.70 ) mGy, DLP = ( 303.10 ) mGycm TECHNIQUE: Transaxial images were obtained from the dome of the diaphragm to the symphysis pubis with oral contrast. Oral and amp; IV Gastrografin and amp; 100mL Isovue-300 was administered. Sagittal and coronal images were reconstructed. Individualized dose optimization techniques were used for this CT. COMPARISON: 01/15/2020 FINDINGS: The visualized lung bases are unremarkable. The visualized portions of the heart are within normal limits. Normal liver. There are multiple gallstones. Normal spleen. Normal pancreas. Normal bilateral adrenal glands. Normal right kidney. Normal left kidney. Normal visualized stomach. Normal small intestine. Normal colon. There is non-visualization of the appendix. Normal abdominal aorta. Normal inferior vena cava. Normal retroperitoneum. Normal urinary bladder. Normal abdominal wall. Normal osseous structures. CT/Abdomen/Pelvis WITH Contrast IMPRESSION: Cholelithiasis per Electronically Signed: Richar Alaniz MD at 7:46 EDT Tel , Service support ,
--- NOTE | 2020-09-15 04:45 | EDS_ITS ---
HPI HPI - GI History of Present Illness Chief Complaint: Abd Pain Informant: patient Abdominal Pain/Flank Pain Onset: Today and Hours (2) Context: Sudden Onset Timing: Continuous Quality: Burning, Sharp and Stabbing Location: RUQ Relieved by: Remaining Still and - (Bending forward) Nausea/Vomiting/Emesis GI Symptom: Positive for Nausea; Negative for Vomiting Diarrhea/Melena/Hematochezia GI Symptom: Negative for Diarrhea, Melena and Hematochezia Associated Symptoms Associated Symptoms: Negative for Dysuria and Hematuria Narrative Narrative: Patient presents with right upper quadrant abdominal pain that began approximately 2 hours prior to arrival. Patient states the pain began rather suddenly. Patient states pain is been constant. Patient describes the pain is sharp, stabbing, and burning. Patient states the pain is in the right upper quadrant radiates into her back. Patient states the pain gets better whenever she bends forward. Patient admits to nausea but denies any vomiting. Patient states that she ate sushi and fried rice at approximately 10 PM last evening. Patient states the pain started approximately 2:30 AM today. PFSH PFS Medical History (Updated 09/15/20 @ 07:[address] Ethan Stoner DO) Anxiety Asthma Asthma Depression Dialysis patient Kidney stones Home Medications beclomethasone dipropionate 1 puff INHALATION PRN PRN 12/25/18 [History Last Taken Unknown] bupropion HCl 300 mg PO DAILY 09/15/20 [History Last Taken Unknown] hydrocodone-acetaminophen 1 tab PO Q6H PRN PRN 3 Days #10 tablet 09/15/20 [Rx Last Taken Unknown] norgestimate-ethinyl estradiol [Suzie] 1 tab DAILY 09/15/20 [History Last Taken Unknown] Allergy/AdvReac Type Severity Reaction Status Date / Time latex Allergy Hives Verified 09/15/20 04:23 Surgical History (Updated 09/15/20 @ 04:[address] Ethan Stoner DO) H/O section Social History Smoking Status: Never smoker ROS ROS ED Constitutional Constitutional ED: Denies chills or fever(s) ENT ENT ED: Denies rhinorrhea or sore throat Cardiovascular Cardiovascular: Denies chest pain or palpitations Respiratory/Chest Respiratory/Chest: Denies cough or dyspnea Gastrointestinal Gastrointestinal: Reports abdominal pain and nausea; Denies vomiting Genitourinary Genitourinary ED: Denies dysuria or hematuria Musculoskeletal Musculoskeletal: Reports back pain; Denies neck pain Integumentary Denies abscess or rash Neurologic Neurologic: Denies headache(s) or weakness Allergic/Immunologic Allergic/Immunologic ED: Denies mouth swelling or urticaria EXAM Physical Exam Const Vital Signs: 09/15/20 04:10 Temperature 98.2 F Temperature Source Oral Pulse Rate 89 Respiratory Rate 14 Blood Pressure 118/77 Blood Pressure Mean 90 Pulse Ox 99 Oxygen Delivery Method Room Air Positive well nourished and well developed General Appearance ED: well developed HEENT Reports moist mucous membranes normocephalic Neck supple and no JVD Resp normal respiratory effort and clear to auscultation bilaterally Cardio regular rate and regular rhythm GI Palpation: soft and tender RUQ and Navarrete's sign; Negative for guarding or r ebound tenderness present Neuro CN's II-XII intact bilaterally, moves all extremities and no sensory deficits noted Sensorium / Orientation: alert, oriented to person, oriented to place and oriented to time Psych mental status grossly normal MDM MDM MDM Narrative Medical decision making narrative: Patient was given IV fluids, morphine, and Zofran. CBC, comprehensive metabolic profile, and urinalysis were within normal limits. Serum hCG was negative. Lipase was normal. CT scan of the abdomen pelvis was obtained. On my interpretation, there are multiple gallstones. Radiologist interpretation is pending. Patient is feeling better on reevaluation. Patient was given a prescription for short course of [place]. Patient was instructed to follow-up with her primary care physician in 5 to 7 days. Patient is also given referral for general surgery. Patient understood and was agreeable with the plan. All questions were answered. Lab Data Attestation: I reviewed the patient's lab results. Labs: Laboratory Results - last 24 hr 09/15/20 09/15/20 09/15/20 04:34 04:34 04:34 WBC 6.2 RBC 4.40 Hgb 13.7 Hct 40.3 MCV 91.6 MCH 31.1 MCHC 34.0 RDW Std Deviation 40.4 RDW Coeff of Allyson 12.0 Plt Count 299 MPV 9.8 Immature Gran % (Auto) 0.200 Neut % (Auto) 59.6 Lymph % (Auto) 31.1 [place] % (Auto) 7.1 Eos % (Auto) 1.0 Baso % (Auto) 1.0 Absolute Neuts (auto) 3.7 Absolute Lymphs (auto) 1.94 Nucleated RBC % 0 Sodium 140 Potassium 3.5 Chloride 104 Carbon Dioxide 32.0 Anion Gap 4 L BUN 11 Creatinine 0.81 Estim Creat Clear Calc 80.12 Est GFR (MDRD) Af Amer 111 Est GFR (MDRD) Non-Af 92 BUN/Creatinine Ratio 13.6 Glucose 102 Calcium 9.0 Total Bilirubin 0.60 AST 67 H ALT 137 H Alkaline Phosphatase 89 Total Protein 7.3 Albumin 3.9 Globulin 3.4 Albumin/Globulin Ratio 1.1 Lipase 81 Serum , Qual Urine Color Yellow Urine Clarity Sl. Cloudy Urine pH 7.0 Ur Specific [place] 1.010 Urine Protein Negative Urine Glucose (UA) Normal Urine Ketones Negative Urine Occult Blood Negative Urine Nitrite Negative Urine Bilirubin Negative Urine Urobilinogen Normal Ur Leukocyte Esterase 25 H Urine RBC 0 SEEN Urine WBC 0-5 SEEN Ur Squamous Epith Cells 0 SEEN Urine Bacteria 0 SEEN Urine Mucus 0 SEEN 09/15/20 04:34 WBC RBC Hgb Hct MCV MCH MCHC RDW Std Deviation RDW Coeff of Allyson Plt Count MPV Immature Gran % (Auto) Neut % (Auto) Lymph % (Auto) [place] % (Auto) Eos % (Auto) Baso % (Auto) Absolute Neuts (auto) Absolute Lymphs (auto) Nucleated RBC % Sodium Potassium Chloride Carbon Dioxide Anion Gap BUN Creatinine Estim Creat Clear Calc Est GFR (MDRD) Af Amer Est GFR (MDRD) Non-Af BUN/Creatinine Ratio Glucose Calcium Total Bilirubin AST ALT Alkaline Phosphatase Total Protein Albumin Globulin Albumin/Globulin Ratio Lipase Serum , Qual NEGATIVE Urine Color Urine Clarity Urine pH Ur Specific [place] Urine Protein Urine Glucose (UA) Urine Ketones Urine Occult Blood Urine Nitrite Urine Bilirubin Urine Urobilinogen Ur Leukocyte Esterase Urine RBC Urine WBC Ur Squamous Epith Cells Urine Bacteria Urine Mucus Discharge Plan Triage Chief Complaint: Abd Pain ED Provider: Ethan Stoner Dx/Rx/DC Orders Clinical Impression: Cholelithiasis Instructions: ED Gallstones with Biliary Colic Prescriptions: New hydrocodone-acetaminophen [hydrocodone-acetaminophen] 1 TABLET tablet 1 tab PO Q6H PRN PRN (Reason: Pain) 3 Days Qty: 10 RF: 0 No Action beclomethasone dipropionate 1 PUFF inhaler 1 puff inhalation PRN PRN (Reason: Asthma) RF: 0 bupropion HCl 300 mg tablet extended release 24 hr 300 mg PO DAILY RF: 0 norgestimate-ethinyl estradiol [Suzie] 0.25-35 mg-mcg tablet 1 tab DAILY RF: 0 Primary Care Provider: Bertha Lin Referrals: Jane Medley MD [STAFF PHYSICIAN] - 5-7 Days Bertha Lin PA-C [Primary Care Provider] - 3-5 Days Disposition Disposition: Home, self care
[2020-09-15 04:48] LABS: Bacteria 0 SEEN /hpf (None Seen); Mucous, Urine 0 SEEN /hpf (<or=2+); Red Blood Cells-Urine 0 SEEN /hpf (0-5); Squamous Epithelial Cells - UA 0 SEEN /hpf (5-10)
[2020-09-15 04:49] LABS: Absolute Lymphocyte Count 1.94 X10^3/uL (0.83-4.51); Absolute Neutrophil Count 3.7 X10^3/uL (2.0-7.7); Basophil# 0.06 X10^3/uL; Eosinophil# 0.06 X10^3/uL; Hematocrit 40.3 % (37-47); Hemoglobin 13.7 g/dL (12.0-15.0); Lymphocyte # 1.94 X10^3/ul (0.83-4.51); Lymphocyte % 31.1 % (19-41); Mean Corpuscular Hgb 31.1 pg (27.0-32.0); Mean Corpuscular Volume 91.6 fL (81-99); Mean Platelet Vol. 9.8 fl (6.2-12.0); Monocyte# 0.44 X10^3/uL; Monocyte% 7.1 % (0-10); NRBC Flagged by Analyzer 0 % (0-5); Neutrophil # 3.73 X10^3/uL (2.7-7.7); Neutrophil % 59.6 % (47-70); Platelet Count 299 K/mm3 (150-450); RBC Distribution Width SD 40.4 fl (35.1-43.9); White Blood Count 6.2 K/mm3 (4.4-11.0)
[2020-09-15 04:50] LABS: Color, Urine Yellow (Yellow); Glucose, Dipstick Normal (Normal); Ketone-Dipstick Negative (Negative); Leukocyte Esterase-Dipstick 25 /ul (Negative); Nitrite-Dipstick Negative (Negative); Occult Blood-Urine Negative /ul (Negative); Protein-Dipstick Negative (Negative); Urine Bilirubin Dipstick Negative (Negative); Urine Clarity Sl. Cloudy (Clear); Urine Urobilinogen Normal (Normal)
[2020-09-15] MEDS: 0.9% Normal Saline 1,000 ML 1000 ML IV (04:51)
[2020-09-15] MEDS: Ondansetron 4 MG/2 ML Vial IV (04:52)
[2020-09-15] MEDS: Morphine 4 MG/ML Syringe IV (04:52)
[2020-09-15 04:55] LABS: White Blood Cells 0-5 SEEN /hpf (0-5)
[2020-09-15 04:56] LABS: Internal QC Validated? YES +Cl - CLEAR BKGD; Pregnancy, Serum, hCG Quali. NEGATIVE Negative
[2020-09-15 05:02] LABS: ALB/GLOB Ratio 1.1 RATIO (0.9-2.4); AST(SGOT) 67 U/L (15-37); Alanine Aminotransfer ALT/SGPT 137 U/L (13-56); Albumin, Serum 3.9 g/dL (3.2-5.0); Alkaline Phosphatase 89 U/L (45-117); Anion Gap 4 (5-15); BUN 11 mg/dL (7-18); BUN/Creat Ratio 13.6 RATIO (10-20); Chloride 104 mmol/L (98-107); Creatinine, Serum 0.81 mg/dL (0.55-1.02); EST Glomerular Filtration Rate 92 mL/min (>60); Est Glom Filt Rate - Afr Amer 111 mL/min (>60); Estimated Creatinine Clearance 80.12 ml/min; Globulin 3.4 g/dL (2.2-4.2); Glucose 102 mg/dL (74-106); Lipase 81 U/L (73-393); Potassium 3.5 mmol/L (3.5-5.1); Protein, Total 7.3 g/dL (6.4-8.2); Sodium Level 140 mmol/L (136-145)
[2020-09-15 07:50] VITALS: BP 110/72; PULSE 67; RESP 16; O2SAT 98
== END 2020-09-15 07:51 | disposition home or self-care (01) ==
PROVIDERS: Emergency Provider Emergency Medicine; PCP Family Medicine
DX: K80.20 Calculus of gallbladder without cholecystitis without obstruction (principal); F32.9 Major depressive disorder, single episode, unspecified; Z99.2 Dependence on renal dialysis; Z79.899 Other long term (current) drug therapy
CPT/HCPCS: 74177; 80053; 81001; 83690; 84703; 85025; 87426; 96361; 96374; 96375; 99283; J7030; Q9967; A4216; J2405

== ENCOUNTER → 2020-09-19 10:07 | Outpatient (CLI) | payer OTHER, SELFPAY ==
[2020-09-19 09:42] VITALS: BMI 23.9
[2020-09-19 10:33] LABS: Absolute Lymphocyte Count 1.28 X10^3/uL (0.83-4.51); Basophil# 0.06 X10^3/uL; Eosinophil# 0.04 X10^3/uL; Eosinophils% 0.7 % (0-5); Hematocrit 46.5 % (37-47); Lymphocyte # 1.28 X10^3/ul (0.83-4.51); Lymphocyte % 22.3 % (19-41); Mean Corp Hgb Conc 32.3 g/dL (32-36); Mean Corpuscular Hgb 29.7 pg (27.0-32.0); Mean Corpuscular Volume 92.1 fL (81-99); Mean Platelet Vol. 9.7 fl (6.2-12.0); Monocyte# 0.33 X10^3/uL; Monocyte% 5.8 % (0-10); NRBC Flagged by Analyzer 0 % (0-5); Neutrophil # 4.01 X10^3/uL (2.7-7.7); Platelet Count 295 K/mm3 (150-450); RBC Distribution Width CV 12.4 % (11.6-14.6); RBC Distribution Width SD 42.4 fl (35.1-43.9); Red Blood Count 5.05 M/mm3 (4.2-5.4); White Blood Count 5.7 K/mm3 (4.4-11.0)
[2020-09-19 11:07] LABS: AST(SGOT) 297 U/L (15-37); Alanine Aminotransfer ALT/SGPT 663 U/L (13-56); Albumin, Serum 4.1 g/dL (3.2-5.0); Alkaline Phosphatase 254 U/L (45-117); Bilirubin, Direct 0.27 mg/dL (0.00-0.30); Globulin 3.6 g/dL (2.2-4.2); Protein, Total 7.7 g/dL (6.4-8.2)
== END ==
PROVIDERS: PCP Family Medicine; Referring Provider Surgery; Visit Provider Surgery
DX: R74.8 Abnormal levels of other serum enzymes (principal); K80.20 Calculus of gallbladder without cholecystitis without obstruction
CPT/HCPCS: 36415; 80076; 85025

== ENCOUNTER → 2022-05-25 | Outpatient (CLI) | payer BC, SELFPAY ==
[2022-05-25 17:25] LABS: hCG Titer Quant., Serum 2924 mIU/mL (1-3)
== END | disposition home or self-care (01) ==
LOC: LAB 16:07
PROVIDERS: Referring Provider Obstetrics & Gynecology; Visit Provider Obstetrics & Gynecology
DX: Z34.90 Encounter for supervision of normal pregnancy, unspecified, unspecified trimester (principal)
CPT/HCPCS: 36415; 84702

== ENCOUNTER → 2022-05-27 | Outpatient (CLI) | payer BC, SELFPAY ==
[2022-05-27 18:23] LABS: hCG Titer Quant., Serum 5299 mIU/mL (1-3)
== END | disposition home or self-care (01) ==
LOC: LAB 16:06
PROVIDERS: Visit Provider Obstetrics & Gynecology
DX: N91.2 Amenorrhea, unspecified (principal)
CPT/HCPCS: 36415; 84702

== ENCOUNTER → 2022-06-08 | Outpatient (CLI) | payer BC, SELFPAY ==
[2022-06-09 21:07] LABS: Chlamydia By Nucleic Acid AMP Negative (Negative)
[2022-06-10 16:50] LABS: Gonococcus By Nucleic Acid AMP Negative (Negative)
[2022-06-11 19:42] LABS: HPV APTIMA, High Risk Negative (Negative)
== END | disposition home or self-care (01) ==
LOC: LABSPEC 12:00
PROVIDERS: Referring Provider Obstetrics & Gynecology; Visit Provider Obstetrics & Gynecology
DX: Z34.90 Encounter for supervision of normal pregnancy, unspecified, unspecified trimester (principal)
CPT/HCPCS: 87086; 87491; 87591; 87624; 88175; G0145

== ENCOUNTER 2022-06-18 21:28 | Emergency (ER) | payer OTHER, SELFPAY ==
[2022-06-18 21:28] VITALS: BP 125/72; PULSE 70; RESP 16; TEMP 35.4; O2SAT 100; BMI 25.4
--- NOTE | 2022-06-18 22:42 | US_ITS ---
STUDY: FIRST TRIMESTER OBSTETRICAL ULTRASOUND REASON FOR EXAM: Female, 26 years old BLEEDING LMP: April 18, 2022 TECHNIQUE: Transvaginal TECHNICAL QUALITY: Adequate. PRIOR ULTRASOUND: None. FINDINGS: There is visualization of a single gestational sac in a normal intrauterine position. The mean sac diameter (MSD) measures 4.1 cm, indicating an estimated gestational age (EGA) of 9 weeks, 4 days. The gestational sac shape is within normal limits. There is a visualized yolk sac. The yolk sac measures 0.4 cm. The placenta is non-visualized. There is visualization of a live embryo. The crown-rump length (CRL) measures 2.2 cm, indicating an estimated gestational age (EGA) of 8 weeks, 5 days. There is demonstrated cardiac activity with a heart rate of 166 bpm. The estimated gestation age (EGA) by LMP is 8 weeks, 5 days. The estimated date of delivery (HAILEY) by LMP is January 23, 2023. The estimated gestation age (EGA) by US is 9 weeks, 1 days. The estimated date of delivery (HAILEY) by US is January 20, 2023. The uterus measures 10.7 x 7.8 x 5.7 cm. There is 1.1 cm hypoechoic subchorionic hemorrhage. There is no demonstrated uterine fibroid. The cervix is closed. The right ovary measures 2.7 x 2.6 x 1.9 cm. There is no right ovarian cyst. There is no visualized right adnexal mass or complex lesion. The left ovary measures 2.4 x 1.9 x 1.4 cm. There is no left ovarian cyst. There is no visualized left adnexal mass or complex lesion. There is mild fluid in the cul de sac. US/Transvaginal w/Preg US IMPRESSION: Single intrauterine gestation 9 weeks 1 day with estimated due date January 20, 2023. Small subchorionic hemorrhage. Electronically Signed: Rafael Bonner MD at 23:53 EST ,
--- NOTE | 2022-06-18 22:42 | ED.VIS.FEGU ---
HPI HPI - Female History of Present Illness Chief Complaint: Vag Bld, Preg Detail of Chief Complaint: Lower abdominal cramping and vaginal bleeding Informant: patient Narrative Narrative: Patient presents to the emergency department lower abdominal cramping that started around dinnertime. Patient states that around 8:30 PM she had a gush of blood and which she thinks may be some tissue. She is concerned she may have had a miscarriage. Patient thinks she will be about 9 weeks in 2 days. Patient is G3, P1. Patient has had 1 prior miscarriage. Currently states she is just having some mild spotting. She is complaining of some mild cramping. She denies urinary symptoms. Patient had a prior ultrasound 2 weeks ago and from what she tells me she had an intrauterine noted at that time. PFSH PFSH Medical History (Updated 06/19/22 @ 00:[address] Fernando Cormier DO) 39 weeks gestation of Anxiety Asthma Contraception management Dialysis patient Elective procedure for unacceptable cosmetic appearance Elevated liver enzymes Encounter for surveillance of implantable subdermal contraceptive False labor after 37 completed weeks of gestation Gastrointestinal problem GERD (gastroesophageal reflux disease) Hx of gallstones Kidney stones Pancreatitis Home Medications beclomethasone dipropionate 80 mcg/actuation HFA breath activated aerosol 1 puff inhalation PRN PRN Asthma 12/25/18 [History Last Taken Unknown] multivit-min no.71-iron fum 28 mg-folate no.1 1 mg-dha 300 mg capsule (PNV-[place]) cap PO 06/04/22 [History Last Taken Unknown] pantoprazole 40 mg tablet,delayed release 40 mg PO DAILY PRN 06/04/22 [History Last Taken Unknown] sertraline 50 mg tablet 50 mg PO DAILY 06/04/22 [History Last Taken Unknown] Allergy/AdvReac Type Severity Reaction Status Date / Time lemon Allergy Mild Itching Verified 06/04/22 15:22 latex Allergy Hives Verified 06/04/22 15:22 kiwi Allergy Mild Itching Uncoded 06/04/22 15:22 Family History Mother Hypertension Cancer skin Skin cancer, Onset Age: 35 Other Anxiety High cholesterol Surgical History (Updated 06/08/22 @ 10:[address] Shelia Mills MD) H/O section Hx of cholecystectomy Hx of lithotripsy Social History adopted: No household members: spouse and children number of children: 1 current occupational status: employed current occupation: [employer] RN current occupational exposures/hazards: No pets and animals: Yes (Not managing litterbox) pets and animals: cat(s) history of recent travel: No sexually active: Yes Smoking Status: Never smoker alcohol intake: current details: not while substance use type: does not use well-balanced diet: daily or most days caffeine: Yes Type: carbonated beverages Number of servings: 2 eating out: 1-3 times/week during the past year weight has: increased > 10 lbs what type of physical activity do you participate in: running and bicycling frequency: 3-4 times per week duration: 15-30 minutes/day lori/evangelical: Islam seatbelt use: always do you feel safe at home: Yes additional social history: Does Not Take Aspirin Does Not Take Ibuprofen DDN ROS ROS ED Review of Systems ROS Unobtainable: other Constitutional Constitutional ED: Reports lethargy; Denies chills, fever(s), sweats or weight loss Eyes Eyes: Denies blurry vision, change in vision or diplopia ENT ENT ED: Denies rhinorrhea or sore throat Cardiovascular Cardiovascular: Denies chest pain, orthopnea or racing heartbeat Respiratory/Chest Respiratory/Chest: Denies cough, dyspnea, dyspnea on exertion, orthopnea or sputum Gastrointestinal Gastrointestinal: Reports abdominal pain; Denies diarrhea, nausea or vomiting Genitourinary Genitourinary ED: Reports other Details: Vaginal bleeding ; Denies dysuria, hematuria or urinary frequency Musculoskeletal Musculoskeletal: Denies arthralgias, back pain, myalgias or neck pain Integumentary Denies abscess, Abrasions or rash Neurologic Neurologic: Denies headache(s) or weakness Psychiatric Psychiatric: Denies anxiety, depression or suicidal thoughts Endocrine Endocrinology: Denies polydipsia, polyphagia or polyuria Hematologic/Lymphatic Hematologic/Lymphatic: Denies easy bleeding, easy bruising or lymphadenopathy Allergic/Immunologic Allergic/Immunologic ED: Denies mouth swelling, tongue swelling or urticaria EXAM Physical Exam Const Vital Signs: 06/18/22 21:28 Temperature 95.8 F L Temperature Source Temporal Pulse Rate 70 Respiratory Rate 16 Blood Pressure 125/72 H Blood Pressure Mean 89 Pulse Ox 100 Oxygen Delivery Method Room Air Positive well nourished and well developed General Appearance ED: well developed and NAD HEENT Reports TM's clear and moist mucous membranes normocephalic and atraumatic; Negative for trauma or tenderness Tympanic Membrane ED: Yes TM's clear Eyes PERRL and EOMs intact bilaterally General Eye ED: Negative for pale conjunctiva or scleral icterus Neck no lymphadenopathy, supple and no JVD General: Negative for tenderness Chest Wall inspection of chest normal and palpation of chest normal Chest: Negative for tenderness Resp normal respiratory effort and clear to auscultation bilaterally Effort and Inspection: Negative for respiratory distress or pain with movement Auscultation: Negative for rhonchi, wheezes or diminished lung sounds Cardio regular rate, regular rhythm, S1 normal heart sound, S2 normal heart sound and no murmurs Peripheral Pulses: pulses 2+ throughout GI normal to inspection, nondistended, normoactive bowel sounds, soft to palpation, non-distended and no masses GI Narrative: Mild tenderness on exam to the suprapubic region. There is no rebound, rigidity, or peritoneal signs. No mass palpated. Back/Spine no CVA tenderness and no thoracic nor lumbar tenderness Extremity normal to inspection General Extremety ED: Negative for edema General Extremity: Negative for edema Neuro oriented x3, CN's II-XII intact bilaterally, no sensory deficits noted and gait normal Sensorium / Orientation: awake, alert, oriented to person, oriented to place and oriented to time Motor Exam: strength 5/5 throughout and strength abnormal Psych mental status grossly normal Skin no rashes or lesions noted and no wounds MDM MDM MDM Narrative Medical decision making narrative: IV line established on arrival. Considered possibility of miscarriage given first trimester bleeding. Suspicion for ectopic was low given that she had had recent ultrasound that showed a live IUP. CBC with differential showed a white count of 9.1 with a hemoglobin 13.2. Platelet count was 282. hCG quant was 111,236. Blood type was O-. Urinalysis was normal. Pelvic ultrasound showed live intrauterine with heart rate of 166 and a small subchorionic hemorrhage. Case was discussed with patient's BUSHING PR[employer] OPERATOR Dr. Mills who recommended giving patient RhoGAM. Patient will receive RhoGAM and she will be discharged home with diagnosis of threatened first trimester . Patient advised on pelvic rest. Patient to follow-up with her BUSHING PRESS OPERATOR. She is to return if worsening pain, persistent bleeding, or condition should worsen anyway. Lab Data Attestation: I reviewed the patient's lab results. Labs: Laboratory Results - last 24 hr 06/18/22 06/18/22 06/18/22 23:00 23:00 23:00 WBC 9.1 RBC 4.19 L Hgb 13.2 Hct 39.3 MCV 93.8 MCH 31.5 MCHC 33.6 RDW Std Deviation 39.0 RDW Coeff of Allyson 11.6 Plt Count 282 MPV 9.3 Immature Gran % (Auto) 0.400 Neut % (Auto) 67.8 Lymph % (Auto) 25.3 [place] % (Auto) 5.2 Eos % (Auto) 0.7 Baso % (Auto) 0.6 Absolute Neuts (auto) 6.2 Absolute Lymphs (auto) 2.30 Nucleated RBC % 0 HCG, Quant [id number] H Urine Color Urine Clarity Urine pH Ur Specific [place] Urine Protein Urine Glucose (UA) Urine Ketones Urine Occult Blood Urine Nitrite Urine Bilirubin Urine Urobilinogen Ur Leukocyte Esterase Urine RBC Urine WBC Ur Squamous Epith Cells Urine Bacteria Urine Mucus Blood Type O NEGATIVE 06/18/22 23:53 WBC RBC Hgb Hct MCV MCH MCHC RDW Std Deviation RDW Coeff of Allyson Plt Count MPV Immature Gran % (Auto) Neut % (Auto) Lymph % (Auto) [place] % (Auto) Eos % (Auto) Baso % (Auto) Absolute Neuts (auto) Absolute Lymphs (auto) Nucleated RBC % HCG, Quant Urine Color Yellow Urine Clarity Clear Urine pH 7.0 Ur Specific [place] 1.015 Urine Protein Negative Urine Glucose (UA) Normal Urine Ketones Negative Urine Occult Blood Negative Urine Nitrite Negative Urine Bilirubin Negative Urine Urobilinogen Normal Ur Leukocyte Esterase Negative Urine RBC 0 SEEN Urine WBC 0 SEEN Ur Squamous Epith Cells 0 SEEN Urine Bacteria 0 SEEN Urine Mucus 0 SEEN Blood Type Radiography Diagnostic Testing: Clinical Impression(s) from Imaging Studies Obstetrics Ultrasound 06/18/22 22:42 IMPRESSION: Single intrauterine gestation 9 weeks 1 day with estimated due date January 20, 2023. Small subchorionic hemorrhage. Electronically Signed: Rafael Bonner MD at 23:53 EST , Discharge Plan Triage Chief Complaint: Vag Bld, Preg ED Provider: Fernando Cormier Dx/Rx/DC Orders Clinical Impression: Vaginal bleeding in patient after first trimester Instructions: ED Possible Miscarriage ... Prescriptions: No Action pantoprazole 40 mg tablet,delayed release (DR/EC) 40 mg PO DAILY PRN PNV-[place] 28-1-300 mg capsule PO sertraline 50 mg tablet 50 mg PO DAILY beclomethasone dipropionate 1 PUFF inhaler 1 puff inhalation PRN PRN (Reason: Asthma) Rx Instructions: pt uses 40mcq, uses it prn for asthma excercised induced (1-2x/year) Primary Care Provider: Manuela Carrero Referrals: Shelia Mills MD [Med Staff - Active Staff] - 3-5 Days Manuela Carrero PA [Primary Care Provider] - Disposition Disposition: Home, Self Care
[2022-06-18 23:10] LABS: Absolute Neutrophil Count 6.2 X10^3/uL (2.0-7.7); Basophil# 0.05 X10^3/uL; Basophil% 0.6 % (0-1); Eosinophil# 0.06 X10^3/uL; Eosinophils% 0.7 % (0-5); Hematocrit 39.3 % (37-47); Hemoglobin 13.2 g/dL (12.0-15.0); Lymphocyte % 25.3 % (19-41); Mean Corp Hgb Conc 33.6 g/dL (32-36); Mean Corpuscular Hgb 31.5 pg (27.0-32.0); Mean Corpuscular Volume 93.8 fL (81-99); Mean Platelet Vol. 9.3 fl (6.2-12.0); Monocyte# 0.47 X10^3/uL; Monocyte% 5.2 % (0-10); NRBC Flagged by Analyzer 0 % (0-5); Neutrophil # 6.17 X10^3/uL (2.7-7.7); Neutrophil % 67.8 % (47-70); Platelet Count 282 K/mm3 (150-450); RBC Distribution Width CV 11.6 % (11.6-14.6); Red Blood Count 4.19 M/mm3 (4.2-5.4); White Blood Count 9.1 K/mm3 (4.4-11.0)
[2022-06-18 23:58] LABS: Bacteria 0 SEEN /hpf (None Seen); Color, Urine Yellow (Yellow); Glucose, Dipstick Normal (Normal); Ketone-Dipstick Negative (Negative); Leukocyte Esterase-Dipstick Negative /ul (Negative); Mucous, Urine 0 SEEN /hpf (<or=2+); Nitrite-Dipstick Negative (Negative); Occult Blood-Urine Negative /ul (Negative); Protein-Dipstick Negative (Negative); Red Blood Cells-Urine 0 SEEN /hpf (0-5); Specific Gravity, Urine 1.015 (1.002-1.030); Squamous Epithelial Cells - UA 0 SEEN /hpf (5-10); Urine Bilirubin Dipstick Negative (Negative); Urine Clarity Clear (Clear); Urine Urobilinogen Normal (Normal); White Blood Cells 0 SEEN /hpf (0-5)
[2022-06-19 01:37] VITALS: BP 110/75; PULSE 72; RESP 18; O2SAT 100
== END 2022-06-19 01:38 | disposition home or self-care (01) ==
PROVIDERS: Emergency Provider Emergency Medicine; Visit Provider Emergency Medicine
DX: O20.0 Threatened abortion (principal); O34.219 Maternal care for unspecified type scar from previous cesarean delivery; Z3A.09 9 weeks gestation of pregnancy
CPT/HCPCS: 76817; 81001; 84702; 85025; 86900; 86901; 99283; A4216; J2790

== ENCOUNTER → 2022-06-25 | Outpatient (CLI) | payer OTHER, SELFPAY ==
[2022-06-25 11:23] LABS: Absolute Lymphocyte Count 1.68 X10^3/uL (0.83-4.51); Absolute Neutrophil Count 5.9 X10^3/uL (2.0-7.7); Basophil# 0.05 X10^3/uL; Basophil% 0.6 % (0-1); Eosinophil# 0.02 X10^3/uL; Eosinophils% 0.2 % (0-5); Hematocrit 41.4 % (37-47); Lymphocyte # 1.68 X10^3/ul (0.83-4.51); Lymphocyte % 20.6 % (19-41); Mean Corp Hgb Conc 33.8 g/dL (32-36); Mean Corpuscular Hgb 31.3 pg (27.0-32.0); Mean Corpuscular Volume 92.4 fL (81-99); Mean Platelet Vol. 9.1 fl (6.2-12.0); Monocyte# 0.47 X10^3/uL; Monocyte% 5.8 % (0-10); NRBC Flagged by Analyzer 0 % (0-5); Neutrophil # 5.92 X10^3/uL (2.7-7.7); Neutrophil % 72.4 % (47-70); Platelet Count 308 K/mm3 (150-450); RBC Distribution Width CV 11.5 % (11.6-14.6); RBC Distribution Width SD 39.2 fl (35.1-43.9); Red Blood Count 4.48 M/mm3 (4.2-5.4); White Blood Count 8.2 K/mm3 (4.4-11.0)
[2022-06-25 12:07] LABS: NATERA MAILED SPECIMEN
[2022-06-25 12:29] LABS: HIV - WCH Non-Reactive (Nonreactive); Hepatitis B Surface Antigen Non-Reactive (Nonreactive); Hepatitis C Antibody Non-Reactive (Nonreactive); Rubella IgG Reactive (Nonreactive); Syphilis Antibodies Non-reactive
== END | disposition home or self-care (01) ==
PROVIDERS: Referring Provider Obstetrics & Gynecology; Visit Provider Obstetrics & Gynecology
DX: Z34.81 Encounter for supervision of other normal pregnancy, first trimester (principal)
CPT/HCPCS: 36415; 85025; 86703; 86762; 86780; 86803; 86850; 86870; 86900; 86901; 87340

== ENCOUNTER → 2022-07-22 | Outpatient (CLI) | payer OTHER, SELFPAY | END | disposition home or self-care (01) | LOC: LABSPEC 14:51 | PROVIDERS: Referring Provider Obstetrics & Gynecology; Visit Provider Obstetrics & Gynecology | DX: O26.899 Other specified pregnancy related conditions, unspecified trimester (principal); R30.0 Dysuria; Z3A.00 Weeks of gestation of pregnancy not specified | CPT/HCPCS: 87086; 87088 ==

== ENCOUNTER 2022-09-22 00:15 | Outpatient (CLI) | payer OTHER, SELFPAY ==
[2022-09-22 00:28] VITALS: PULSE 64; O2SAT 99
[2022-09-22 00:31] VITALS: BP 113/63; PULSE 68; TEMP 36.9
[2022-09-22 00:33] VITALS: PULSE 72; O2SAT 99
[2022-09-22 00:41] VITALS: BMI 30.2
[2022-09-22 01:24] LABS: Glucose, Dipstick Normal (Normal); Ketone-Dipstick Negative (Negative); Leukocyte Esterase-Dipstick Negative /ul (Negative); Nitrite-Dipstick Negative (Negative); Occult Blood-Urine 150 /ul (Negative); Protein-Dipstick Negative (Negative); Specific Gravity, Urine 1.015 (1.002-1.030); Urine Bilirubin Dipstick Negative (Negative); Urine Urobilinogen Normal (Normal); Urine pH 6.5 (5.0 - 8.0)
[2022-09-22 01:28] LABS: Color, Urine Yellow (Yellow); Urine Clarity Clear (Clear)
[2022-09-22 02:29] LABS: Absolute Neutrophil Count 8.2 X10^3/uL (2.0-7.7); Basophil# 0.07 X10^3/uL; Basophil% 0.6 % (0-1); Eosinophil# 0.04 X10^3/uL; Eosinophils% 0.4 % (0-5); Hematocrit 34.1 % (37-47); Hemoglobin 11.4 g/dL (12.0-15.0); Lymphocyte % 18.3 % (19-41); Mean Corp Hgb Conc 33.4 g/dL (32-36); Mean Corpuscular Hgb 31.6 pg (27.0-32.0); Mean Corpuscular Volume 94.5 fL (81-99); Mean Platelet Vol. 9.4 fl (6.2-12.0); Monocyte# 0.55 X10^3/uL; NRBC Flagged by Analyzer 0 % (0-5); Neutrophil # 8.19 X10^3/uL (2.7-7.7); Neutrophil % 75.2 % (47-70); Platelet Count 267 K/mm3 (150-450); RBC Distribution Width CV 12.7 % (11.6-14.6); RBC Distribution Width SD 43.9 fl (35.1-43.9); Red Blood Count 3.61 M/mm3 (4.2-5.4); White Blood Count 10.9 K/mm3 (4.4-11.0)
[2022-09-22 02:38] LABS: Fibrinogen 327 mg/dl (203-444)
--- NOTE | 2022-09-22 04:00 | US_ITS ---
STUDY: SECOND AND THIRD TRIMESTER OBSTETRICAL ULTRASOUND - LIMITED REASON FOR EXAM: Female, 27 years old bleeding -- cervical length, placenta, fluid LMP: April 18, 2022. PRIOR ULTRASOUND: Comparison is made with prior study dated June 18, 2022. TECHNIQUE: Transabdominal and Transvaginal TECHNICAL QUALITY: Adequate. FINDINGS: There is a single intrauterine fetus. The fetus is in a cephalic presentation. There is demonstrated cardiac activity with a heart rate of 138 bpm. There is a normal amniotic fluid volume. The largest amniotic fluid pocket measures 4.3 cm x 5.9 cm. The amniotic fluid index (MARLA) is within normal limits. The placenta is left lateral in location and is not low lying. There are Grade 0 placental changes. The cervix measures 4.4 cm in length. BIOMETRY: Age by LMP: 22 weeks, 3 days. HAILEY by LMP: January 23, 2023. age by prior US: 22 weeks, 6 days. HAILEY by prior US: January 20, 2023. IMPRESSION: Cervical length measures 4.4 cm. Electronically Signed: Ryan Naidu MD at 13:39 EDT , STUDY: FIRST TRIMESTER OBSTETRICAL ULTRASOUND REASON FOR EXAM: Female, 27 years old bleeding -- cervical length, LMP: April 18, 2022. TECHNIQUE: Transvaginal TECHNICAL QUALITY: Adequate. PRIOR ULTRASOUND: None. FINDINGS: Cervical length measures 4.4 cm. US/OB Limited (No Biometrics) IMPRESSION: Cervical length measures 4.4 cm. Electronically Signed: Ryan Naidu MD at 13:40 EDT ,
[2022-09-22 04:07] VITALS: BP 103/55; PULSE 63
--- NOTE | 2022-09-27 08:53 | OB.TRI.PN ---
Progress Notes Date of Service: 09/22/22 Progress Note: Patient presents for triage evaluation secondary to pelvic pressure FHT: 140 Moderate variability reactive no decelerations category I tracing [place]: no regular Contractions Assessment and plan: threatened ptl no dilation Reactive NST, reassuring maternal and status patient discharged to home to follow-up as scheduled. See problem list details for additional plan information. Laboratory Studies: Laboratory Tests 09/22/22 09/22/22 09/22/22 Range/Units 02:00 02:00 01:00 WBC 10.9 (4.4-11.0) K/mm3 RBC 3.61 L (4.2-5.4) M/mm3 Hgb 11.4 L (12.0-15.0) g/dL Hct 34.1 L (37-47) % MCV 94.5 (81-99) fL MCH 31.6 (27.0-32.0) pg MCHC 33.4 (32-36) g/dL RDW Std Deviation 43.9 (35.1-43.9) fl RDW Coeff of Allyson 12.7 (11.6-14.6) % Plt Count 267 (150-450) K/mm3 MPV 9.4 (6.2-12.0) fl Immature Gran % (Auto) 0.500 (0.0-0.9) % Neut % (Auto) 75.2 H (47-70) % Lymph % (Auto) 18.3 L (19-41) % Coke % (Auto) 5.0 (0-10) % Eos % (Auto) 0.4 (0-5) % Baso % (Auto) 0.6 (0-1) % Absolute Neuts (auto) 8.2 H (2.0-7.7) X10^3/uL Absolute Lymphs (auto) 2.00 (0.83-4.51) X10^3/uL Nucleated RBC % 0 (0-5) % Fibrinogen 327 (203-444) mg/dl Urine Color Yellow (Yellow) Urine Clarity Clear (Clear) Urine pH 6.5 (5.0 - 8.0) Ur Specific [place] 1.015 (1.002-1.030) Urine Protein Negative (Negative) mg/dl Urine Glucose (UA) Normal (Normal) mg/dl Urine Ketones Negative (Negative) mg/dl Urine Occult Blood 150 H (Negative) /ul Urine Nitrite Negative (Negative) Urine Bilirubin Negative (Negative) mg/dL Urine Urobilinogen Normal (Normal) mg/dl Ur Leukocyte Esterase Negative (Negative) /ul Charges/Coding Procedures Urinary/Genital 52xxx-59xxx: No Charge
== END 2022-09-22 08:23 | disposition home or self-care (01) ==
LOC: WPOUT 00:20 → WP 00:20
PROVIDERS: Visit Provider Obstetrics & Gynecology
DX: O99.891 Other specified diseases and conditions complicating pregnancy (principal); Z3A.00 Weeks of gestation of pregnancy not specified; R10.2 Pelvic and perineal pain
CPT/HCPCS: 36415; 59050; 76815; 76817; 81002; 85025; 85384; 87086; 87088; 99221; G0378

== ENCOUNTER 2022-10-14 10:26 | Outpatient (CLI) | payer OTHER, SELFPAY ==
[2022-10-14 11:00] LABS: Absolute Lymphocyte Count 0.74 X10^3/uL (0.83-4.51); Absolute Neutrophil Count 4.8 X10^3/uL (2.0-7.7); Basophil# 0.02 X10^3/uL; Basophil% 0.3 % (0-1); Eosinophil# 0.01 X10^3/uL; Eosinophils% 0.2 % (0-5); Hematocrit 37.9 % (37-47); Hemoglobin 12.9 g/dL (12.0-15.0); Lymphocyte # 0.74 X10^3/ul (0.83-4.51); Lymphocyte % 12.5 % (19-41); Mean Corpuscular Hgb 31.4 pg (27.0-32.0); Mean Corpuscular Volume 92.2 fL (81-99); Mean Platelet Vol. 9.3 fl (6.2-12.0); Monocyte# 0.33 X10^3/uL; Monocyte% 5.6 % (0-10); NRBC Flagged by Analyzer 0 % (0-5); Neutrophil # 4.76 X10^3/uL (2.7-7.7); Neutrophil % 80.4 % (47-70); Platelet Count 250 K/mm3 (150-450); RBC Distribution Width CV 12.5 % (11.6-14.6); RBC Distribution Width SD 42.5 fl (35.1-43.9); Red Blood Count 4.11 M/mm3 (4.2-5.4); White Blood Count 5.9 K/mm3 (4.4-11.0)
[2022-10-14 11:14] LABS: Glucose Challenge Gest 1H 50g 115 mg/dL (70-140)
[2022-10-14 11:37] VITALS: BP 110/67; PULSE 97; RESP 16; TEMP 35.9; O2SAT 97
[2022-10-14 11:48] LABS: HIV - WCH Non-Reactive (Nonreactive); Syphilis Antibodies Non-reactive
[2022-10-14] MEDS: 0.9% NaCl Peripheral Flush Adult/Peds IV (11:48)
[2022-10-14] MEDS: Dextrose 5%-Lactated Ringers 1,000 ML 999 ML IV (11:48)
[2022-10-14] MEDS: Ondansetron 4 MG/2 ML Vial IV (12:19)
[2022-10-14 12:53] VITALS: BP 99/60; PULSE 89; RESP 16
== END 2022-10-14 10:27 | disposition home or self-care (01) ==
LOC: PAVLAB 11:28 → MEDOUTP 11:31
PROVIDERS: Obstetrics & Gynecology; Referring Provider Obstetrics & Gynecology; Visit Provider Obstetrics & Gynecology
DX: E86.0 Dehydration (principal); O09.90 Supervision of high risk pregnancy, unspecified, unspecified trimester; Z3A.21 21 weeks gestation of pregnancy
CPT/HCPCS: 96374; 96361; 36415; 82950; 85025; 86703; 86780; 86900; 86901; A4216; J2405

== ENCOUNTER → 2022-10-30 | Outpatient (CLI) | payer OTHER, SELFPAY | END | disposition home or self-care (01) | LOC: PAVLAB 11:29 | PROVIDERS: Visit Provider Registered Nurse | DX: O26.899 Other specified pregnancy related conditions, unspecified trimester (principal); Z67.91 Unspecified blood type, Rh negative; Z3A.00 Weeks of gestation of pregnancy not specified | CPT/HCPCS: 36415 ==

== ENCOUNTER → 2023-01-01 | Outpatient (CLI) | payer OTHER, SELFPAY ==
[2023-01-01 18:30] LABS: Group B Strep DNA By PCR Negative (Negative); Internal Control PASS; Specimen Processing Control PASS
[2023-01-01 18:31] LABS: Probe Check PASS
== END | disposition home or self-care (01) ==
LOC: LABSPEC 16:45
PROVIDERS: Referring Provider Registered Nurse; Visit Provider Registered Nurse
DX: Z34.90 Encounter for supervision of normal pregnancy, unspecified, unspecified trimester (principal)
CPT/HCPCS: 87081; 87653

== ENCOUNTER 2023-01-04 22:42 | Outpatient (CLI) | payer OTHER, SELFPAY ==
[2023-01-04 23:04] VITALS: BP 124/73; PULSE 84; PULSE 94; O2SAT 98
[2023-01-04 23:09] VITALS: PULSE 86; O2SAT 98
[2023-01-04 23:16] VITALS: BMI 33.5
[2023-01-05] VITALS (8 sets, daily range): PULSE 59–83; O2SAT 98–100
[2023-01-05 00:06] LABS: Color, Urine Yellow (Yellow); Glucose, Dipstick Normal (Normal); Ketone-Dipstick Negative (Negative); Leukocyte Esterase-Dipstick 100 /ul (Negative); Nitrite-Dipstick Negative (Negative); Occult Blood-Urine Negative /ul (Negative); Protein-Dipstick Negative (Negative); Urine Bilirubin Dipstick Negative (Negative); Urine Clarity Clear (Clear); Urine Urobilinogen Normal (Normal)
--- NOTE | 2023-01-06 17:16 | OB.TRI.HP_ITS ---
HPI - General General Date of Admission: 01/04/23 Date of Service: 01/04/23 HPI Narrative VICTOR MANUEL CLEMENTE, is a 27 F who presents at 37.2 with intermittent contractions and lower back pain worsening with movement, unable to rest. denies vb/lof. good fm. history significant for previous c/s Maternal Data Information HAILEY Calculator Estimated Delivery Date Method Current WG Current Estimate 01/23/23 Ultrasound #1 37w 4d Other Estimates 01/16/23 LMP (Certain) 38w 4d PFSH PFSH Medical History 39 weeks gestation of Anxiety Asthma Contraception management Elective procedure for unacceptable cosmetic appearance Elevated liver enzymes Encounter for surveillance of implantable subdermal contraceptive False labor after 37 completed weeks of gestation GERD (gastroesophageal reflux disease) Hx of gallstones Kidney stones Pancreatitis Home Medications multivit-min no.71-iron fum 28 mg-folate no.1 1 mg-dha 300 mg capsule (PNV- [place]) 1 cap PO DAILY 06/04/22 [History Last Taken 01/04/23] sertraline 100 mg tablet 100 mg PO DAILY #30 tabs 11/24/22 [Rx Last Taken 01/04/23] Allergy/AdvReac Type Severity Reaction Status Date / Time kiwi Allergy Mild Itching Verified 01/04/23 23:13 lemon Allergy Mild Itching Verified 01/04/23 23:13 latex Allergy Hives Verified 01/04/23 23:13 Family History Mother Hypertension Cancer skin Skin cancer, Onset Age: 35 Other Anxiety High cholesterol Surgical History H/O section Hx of cholecystectomy Hx of lithotripsy Social History adopted: No household members: spouse and children number of children: 1 current occupational status: employed 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 occupational exposures/hazards: No pets and animals: Yes (Not managing litterbox) pets and animals: cat(s) history of recent travel: No sexually active: Yes Smoking Status: Never smoker alcohol intake: current details: not while substance use type: does not use well-balanced diet: daily or most days caffeine: Yes Type: carbonated beverages Number of servings: 2 eating out: 1-3 times/week during the past year weight has: increased > 10 lbs what type of physical activity do you participate in: running and bicycling frequency: 3-4 times per week duration: 15-30 minutes/day lori/bahai: Religious seatbelt use: always do you feel safe at home: Yes additional social history: Does Not Take Aspirin Does Not Take Ibuprofen [place] - [employer] History 3 Elective abortions Hx Para 1 Spontaneous abortions 1 Hx # Term Pregnancies Ectopic pregnancies Hx # Pregnancies Multiple births # of living children 1 Past Pregnancies Del. Date Name GA/Weeks Outcome Route Bth Weight Infant Gen Labor Lgth Anes th esia Del Locatn Provider FOB 12/27/18 Patric 40 live - full term 9#8oz Male 32 hrs epidural [facility] Barney Delivery Date: 12/27/18 Last Updated by: Christi Dalton Baby too big Visit Details Expected Delivery Route/Plan RLTCS Plans Covid status: discussed Flu vaccine: discussed Tdap vaccine: declined Rhogam: na LARC form signed: [] movement and labor precautions reviewed. Problem list reviewed and updated with the most current plan of care details and appropriate orders placed. Relevant counseling for the gestational age provided. Continue routine care and follow up unless otherwise noted in visit notes/problem list details OB Flowsheet Initial Weight: 141 lb Date -?-?-?-?-?-?-?-?-?-?-?-?- EGA Weight BP Urine Prot -?-?-?-?-?-?-?-?-?-?-?-?- Glucose FHR FuHt Pres Dilation -?-?-?-?-?-?-?-?-?-?-?-?- Effaced St Visit Note 06/08/22 -?-?-?-?-?-?-?-?-?-?-?-?- 7w 2d 141 lb (+0 oz) 122/74 -?-?-?-?-?-?-?-?-?-?-?-?- 140 -?-?-?-?-?-?-?-?-?-?-?-?- SM- CRL not cons with LMP but cons with pos preg test and 35 day cycle history, 11mm. 06/25/22 -?-?-?-?-?-?-?-?-?-?-?-?- 9w 5d 146 lb (+5 lb) 112/74 -?-?-?-?-?-?-?-?-?-?-?-?- 150 -?-?-?-?-?-?-?-?-?-?-?-?- some spotting, h as had rhogam 07/22/22 -?-?-?-?-?-?-?-?-?-?-?-?- 13w 4d 150 lb 2 oz (+9 lb 2 oz) 122/77 Negative -?-?-?-?-?-?-?-?-?-?-?-?- Negative 160 -?-?-?-?-?-?-?-?-?-?-?-?- JV- activi ty noted. no further bleeding .CRL measuring 14 weeks 2 days. anatomy scan ordered 08/18/22 -?-?-?-?-?-?-?-?-?-?-?-?- 17w 3d 151 lb 6 oz (+10 lb 6 oz) 110/68 Negative -?-?-?-?-?-?-?-?-?-?-?-?- Negative 136 -?-?-?-?-?-?-?-?-?-?-?-?- MH-NO VB, crampi ng. Feeling flutters. US is 09/0109/18/22 -?-?-?-?-?-?-?-?-?-?-?-?- 21w 6d 156 lb 6 oz (+15 lb 6 oz) 111/71 Negative -?-?-?-?-?-?-?-?-?-?-?-?- Negative 140 -?-?-?-?-?-?-?-?-?-?-?-?- JV- no lof, vagi nal bleeding, or cramping + FM. GLucola drink given 10/14/22 -?-?-?-?-?-?-?-?-?-?-?-?- 25w 4d 159 lb 6 oz (+18 lb 6 oz) 107/72 1+ -?-?-?-?-?-?-?-?-?-?-?-?- Negative 145 25 -?-?-?-?-?-?-?-?-?-?-?-?- LC- no vb/ctx/lo f. good fm. not able to keep anything down for past 4 days. sent to infusion center for IV hydration. will redraw type&screen and give rhogam next visit. LC- no vb/ctx/lof. good fm. not able to keep anything down for past 4 days. sent to infusion center for IV hydration. will redraw type&screen, titers for positive screening in early trimester(likely d/t rhogam dose) and give rhogam next visit. LC- no vb/ctx/lof. good fm. not able to keep anything down for past 4 days. sent to infusion center for IV hydration. will redraw type&screen, titers for positive screening in early trimester-likely d/t rhogam dose, and give rhogam next visit. 10/30/22 -?-?-?-?-?-?-?-?-?-?-?-?- 27w 6d 163 lb 8 oz (+22 lb 8 oz) 98/63 -?-?-?-?-?-?-?-?-?-?-?-?- 137 27 -?-?-?-?-?-?-?-?-?-?-?-?- JV- antibody lópez t ordered today and rhogam given. no complaints. JV- antibody test ordered to day and rhogam given. no complaints. planning primary section due to bad shoulder dystocia that resulted in a zavanelli maneuver JV- antibody test ordered to day and rhogam given. no complaints. planning repeat section due to bad shoulder dystocia that resulted in a zavanelli maneuver 11/13/22 -?-?-?-?-?-?-?-?-?-?-?-?- 29w 6d 169 lb 2 oz (+28 lb 2 oz) 110/74 Negative -?-?--?-?-?-?-?-?-?-?-?-?- Negative 135 30 -?-?-?-?-?-?-?-?-?-?-?-?- KW-+FM. no lof/v b/ctx. noticed minimal spotting on the toilet tissue after working 6 12 hour shifts in a row over the holiday weekend, no further spotting. Offered work letter. Declines at this time. Instructed not to be working so many shifts in a row, and to hydrate & rest. 11/24/22 -?-?-?-?-?-?-?-?-?-?-?-?- 31w 3d 170 lb 4 oz (+29 lb 4 oz) 123/81 Negative -?-?-?-?-?-?-?-?-?-?-?-?- Negative 135 32 -?-?-?--?-?-?-?-?-?-?-?-?- SM- no lof good fm no regular ctx had small episode of spotting nothing since, 12/10/22 -?-?-?-?-?-?-?-?-?-?-?-?- 33w 5d 172 lb 6 oz (+31 lb 6 oz) 117/79 Negative -?-?-?-?-?-?-?-?-?-?-?-?- Negative 135 34 -?-?-?-?-?-?-?-?-?-?-?-?- SM- no vb lof [place] ving some crmaping good fm 12/22/22 -?-?-?-?-?-?-?-?-?-?-?-?- 35w 3d 174 lb (+33 lb) 113/82 -?-?-?-?-?-?-?-?-?-?-?-?- 145 36 Cephalic 0 -?-?-?-?-?-?-?-?-?-?-?-?- JV- pt had some spotting mitchell and vomiting. SHe worked all weekend. no dilation today. no signs of ptl. 01/01/23 -?-?-?-?-?-?-?-?-?-?-?-?- 36w 6d 175 lb 2 oz (+34 lb 2 oz) 125/76 Negative -?-?-?-?-?-?-?-?-?-?-?-?- Negative 140 37 -?-?-?-?-?-?-?-?-?-?-?-?- LC- no vb/ctx/lo f. good fm. rpt c/s scheduled for 01/18. gbs obtained today. NST FHR Rate Baby A Baseline: 115 Variability:: Moderate Accelerations:: 15 x 15 Decelerations:: None NST Reactive:: Yes FHR Category:: Category I Uterine Activity:: irregular Assessment & Plan (1) Irregular contractions: COMMENT: false labor. maintain hydration. reassurance. /-2 PLAN: Plan Patient presents for triage evaluation secondary to back pain and contractions. no change in cervical exam with decreasing intensity of contractions. urine dip negative for s/sx of UTI. FHT: Moderate variability reactive no decelerations category I tracing [place]: irregular Contractions Assessment and plan: Reactive NST, reassuring maternal and status patient discharged to home to follow-up in office/as needed. See problem list details for additional plan information. Charges/Coding Procedures Urinary/Genital 52xxx-59xxx: [id number] non-stress test Interp
== END 2023-01-05 01:50 | disposition home or self-care (01) ==
LOC: WPOUT 22:46 → WP 22:46
PROVIDERS: Referring Provider Obstetrics & Gynecology; Visit Provider Obstetrics & Gynecology
DX: O47.1 False labor at or after 37 completed weeks of gestation (principal); Z3A.37 37 weeks gestation of pregnancy; O99.343 Other mental disorders complicating pregnancy, third trimester; F41.9 Anxiety disorder, unspecified; Z79.899 Other long term (current) drug therapy
CPT/HCPCS: 59025; 59050; 81002; 87086

== ENCOUNTER 2023-01-07 11:10 | Inpatient (IN) | payer OTHER, SELFPAY ==
[2023-01-07] VITALS (15 sets, daily range): BP systolic 96–119; BP diastolic 50–72; PULSE 63–111; RESP 16–18; TEMP 36.1–36.9; O2SAT 95–100; BMI 33.4
[2023-01-07] MEDS: Lactated Ringers 1,000 ML 999 ML IV (11:20)
[2023-01-07 11:43] LABS: Absolute Lymphocyte Count 1.93 X10^3/uL (0.83-4.51); Absolute Neutrophil Count 6.9 X10^3/uL (2.0-7.7); Basophil# 0.04 X10^3/uL; Basophil% 0.4 % (0-1); Eosinophil# 0.02 X10^3/uL; Eosinophils% 0.2 % (0-5); Hematocrit 33.8 % (37-47); Hemoglobin 11.7 g/dL (12.0-15.0); Lymphocyte # 1.93 X10^3/ul (0.83-4.51); Lymphocyte % 20.4 % (19-41); Mean Corp Hgb Conc 34.6 g/dL (32-36); Mean Corpuscular Volume 86.7 fL (81-99); Mean Platelet Vol. 10.2 fl (6.2-12.0); Monocyte# 0.54 X10^3/uL; Monocyte% 5.7 % (0-10); NRBC Flagged by Analyzer 0 % (0-5); Neutrophil # 6.89 X10^3/uL (2.7-7.7); Neutrophil % 72.8 % (47-70); Platelet Count 287 K/mm3 (150-450); RBC Distribution Width CV 12.9 % (11.6-14.6); RBC Distribution Width SD 40.3 fl (35.1-43.9); White Blood Count 9.5 K/mm3 (4.4-11.0)
[2023-01-07] MEDS: Acetaminophen 500 MG Tablet 1000 MG PO ×3 (11:59→23:58)
[2023-01-07] MEDS: Sodium Citrate/Citric Acid 30 ML UDC PO (12:20)
[2023-01-07] MEDS: Lactated Ringers 1,000 ML 150 ML IV (12:21)
[2023-01-07 12:28] LABS: Syphilis Antibodies Non-reactive
[2023-01-07] MEDS: Cefazolin 2 GM in 0.9% Normal Saline 100 ML IV (12:33)
--- NOTE | 2023-01-07 12:34 | HP.PCM.OB_ITS ---
HPI - General General Date of Admission: 01/07/23 HPI Narrative VICTOR MANUEL CLEMENTE, is a 27 F who presents for lower abdominal pain, no vb lof admits good fm, she is having ctx and is 1 cm dilated. Maternal Data Information HAILEY Calculator Estimated Delivery Date Method Current WG Current Estimate 01/23/23 Ultrasound #1 37w 5d Other Estimates 01/16/23 LMP (Certain) 38w 5d PFSH PFSH Medical History 39 weeks gestation of Anxiety Asthma Contraception management Elective procedure for unacceptable cosmetic appearance Elevated liver enzymes Encounter for surveillance of implantable subdermal contraceptive False labor after 37 completed weeks of gestation GERD (gastroesophageal reflux disease) Hx of gallstones Kidney stones Pancreatitis Home Medications multivit-min no.71-iron fum 28 mg-folate no.1 1 mg-dha 300 mg capsule (PNV- [place]) 1 cap PO DAILY 06/04/22 [History Last Taken 01/07/23 08:00] sertraline 100 mg tablet 100 mg PO DAILY depression and anxiety #30 tabs 11/24/22 [Rx Last Taken 01/07/23 08:00] Allergy/AdvReac Type Severity Reaction Status Date / Time kiwi Allergy Mild Itching Verified 01/07/23 11:21 lemon Allergy Mild Itching Verified 01/07/23 11:21 latex Allergy Hives Verified 01/07/23 11:21 Family History Mother Hypertension Cancer skin Skin cancer, Onset Age: 35 Other Anxiety High cholesterol Surgical History H/O section Hx of cholecystectomy Hx of lithotripsy Social History adopted: No household members: spouse and children number of children: 1 current occupational status: employed 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/hazards: No pets and animals: Yes (Not managing litterbox) pets and animals: cat(s) history of recent travel: No sexually active: Yes Smoking Status: Never smoker alcohol intake: current details: not while substance use type: does not use well-balanced diet: daily or most days caffeine: Yes Type: carbonated beverages Number of servings: 2 eating out: 1-3 times/week during the past year weight has: increased > 10 lbs what type of physical activity do you participate in: running and bicycling frequency: 3-4 times per week duration: 15-30 minutes/day lori/christianity: Muslim seatbelt use: always do you feel safe at home: Yes additional social history: Does Not Take Aspirin Does Not Take Ibuprofen Barney - [employer] History 3 Elective abortions Hx Para 1 Spontaneous abortions 1 Hx # Term Pregnancies Ectopic pregnancies Hx # Pregnancies Multiple births # of living children 1 Past Pregnancies Del. Date Name GA/Weeks Outcome Route Bth Weight Gen Labor Lgth Anesthesia Del Locatn Provider FOB 12/27/18 Patric 40 live - full term 9#8oz Male 32 hrs epidural [facility] Grecia Corley Delivery Date: 12/27/18 Last Updated by: Christi Dalton Baby too big Visit Details Expected Delivery Route/Plan RLTCS Plans Covid status: discussed Flu vaccine: discussed Tdap vaccine: declined Rhogam: na LARC form signed: [] movement and labor precautions reviewed. Problem list reviewed and updated with the most current plan of care details and appropriate orders placed. Relevant counseling for the gestational age provided. Continue routine care and follow up unless otherwise noted in visit notes/problem list details OB Flowsheet Initial Weight: 141 lb Date -?-?-?-?-?-?-?-?-?-?-?-?- EGA Weight BP Urine Prot -?-?-?-?-?-?-?-?-?-?-?--?- Glucose FHR FuHt Pres Dilation -?-?-?-?-?-?-?-?-?-?-?-?- Effaced St Visit Note 06/08/22 -?-?-?-?-?-?-?-?-?-?-?-?- 7w 2d 141 lb (+0 oz) 122/74 -?-?-?-?-?-?-?-?-?-?-?-?- 140 -?-?-?-?-?-?-?-?-?-?-?-?- SM- CRL not cons with LMP but cons with pos preg test and 35 day cycle history, 11mm. 06/25/22 -?-?-?-?-?-?-?-?-?-?-?-?- 9w 5d 146 lb (+5 lb) 112/74 -?-?-?-?-?-?-?-?-?-?-?-?- 150 -?-?-?-?-?-?-?-?-?-?-?-?- some spotting, h as had rhogam 07/22/22 -?-?-?-?-?-?-?-?-?-?-?-?- 13w 4d 150 lb 2 oz (+9 lb 2 oz) 122/77 Negative -?-?-?-?-?-?-?-?-?-?-?-?- Negative 160 -?-?-?-?-?-?-?-?-?-?-?-?- JV- activi ty noted. no further bleeding .CRL measuring 14 weeks 2 days. anatomy scan ordered 08/18/22 -?-?-?-?-?-?-?-?-?-?-?-?- 17w 3d 151 lb 6 oz (+10 lb 6 oz) 110/68 Negative -?-?-?-?-?-?-?-?-?-?-?-?- Negative 136 -?-?-?-?-?-?-?-?-?-?-?-?- MH-NO VB, crampi ng. Feeling flutters. US is 09/0109/18/22 -?-?-?-?-?-?-?-?-?-?-?-?- 21w 6d 156 lb 6 oz (+15 lb 6 oz) 111/71 Negative -?-?-?-?-?-?-?-?-?-?-?-?- Negative 140 -?-?-?-?-?-?-?-?-?-?-?-?- JV- no lof, vagi nal bleeding, or cramping + FM. GLucola drink given 10/14/22 -?-?-?-?-?-?-?-?-?-?-?-?- 25w 4d 159 lb 6 oz (+18 lb 6 oz) 107/72 1+ -?-?-?-?-?-?-?-?-?-?-?-?- Negative 145 25 -?-?-?-?-?-?-?-?-?-?-?-?- LC- no vb/ctx/lo f. good fm. not able to keep anything down for past 4 days. sent to infusion center for IV hydration. will redraw type&screen and give rhogam next visit. LC- no vb/ctx/lof. good fm. not able to keep anything down for past 4 days. sent to infusion center for IV hydration. will redraw type&screen, titers for positive screening in early trimester(likely d/t rhogam dose) and give rhogam next visit. LC- no vb/ctx/lof. good fm. not able to keep anything down for past 4 days. sent to infusion center for IV hydration. will redraw type&screen, titers for positive screening in early trimester-likely d/t rhogam dose, and give rhogam next visit. 10/30/22 -?-?-?-?-?-?-?-?-?-?-?-?- 27w 6d 163 lb 8 oz (+22 lb 8 oz) 98/63 -?-?-?-?-?-?-?-?-?-?-?-?- 137 27 -?-?-?-?-?-?-?-?-?-?-?-?- JV- antibody lópez t ordered today and rhogam given. no complaints. JV- antibody test ordered to day and rhogam given. no complaints. planning primary section due to bad shoulder dystocia that resulted in a zavanelli maneuver JV- antibody test ordered to day and rhogam given. no complaints. planning repeat section due to bad shoulder dystocia that resulted in a zavanelli maneuver 11/13/22 -?--?-?-?-?-?-?-?-?-?-?-?- 29w 6d 169 lb 2 oz (+28 lb 2 oz) 110/74 Negative -?-?-?-?-?-?-?-?-?-?-?-?- Negative 135 30 -?-?-?-?-?-?-?-?-?-?--?-?- KW-+FM. no lof/v b/ctx. noticed minimal spotting on the toilet tissue after working 6 12 hour shifts in a row over the holiday weekend, no further spotting. Offered work letter. Declines at this time. Instructed not to be working so many shifts in a row, and to hydrate & rest. 11/24/22 -?-?-?-?-?-?-?-?-?-?-?-?- 31w 3d 170 lb 4 oz (+29 lb 4 oz) 123/81 Negative -?-?-?-?-?-?-?-?-?-?-?-?- Negative 135 32 -?-?-?-?-?-?-?-?-?-?-?-?- SM- no lof good fm no regular ctx had small episode of spotting nothing since, 12/10/22 -?-?-?-?-?-?-?-?-?-?-?-?- 33w 5d 172 lb 6 oz (+31 lb 6 oz) 117/79 Negative -?-?-?-?-?-?-?-?-?-?-?-?- Negative 135 34 -?-?-?-?-?-?-?-?-?-?-?-?- SM- no vb lof aegle ving some crmaping good fm 12/22/22 -?-?-?-?-?-?-?-?-?-?-?-?- 35w 3d 174 lb (+33 lb) 113/82 -?-?-?-?-?-?-?-?-?-?-?-?- 145 36 Cephalic 0 -?-?-?-?-?-?-?-?-?-?-?-?- JV- pt had some spotting mitchell and vomiting. SHe worked all weekend. no dilation today. no signs of ptl. 01/01/23 -?-?-?-?-?-?-?-?-?-?-?-?- 36w 6d 175 lb 2 oz (+34 lb 2 oz) 125/76 Negative -?-?-?-?-?-?-?-?-?-?-?-?- Negative 140 37 -?-?-?-?-?-?-?-?-?-?-?-?- LC- no vb/ctx/lo f. good fm. rpt c/s scheduled for 01/18. gbs obtained today. 01/07/23 -?-?-?-?-?-?-?-?-?-?-?-?- 37w 5d 178 lb 2 oz (+37 lb 2 oz) 130/84 -?-?-?-?-?-?-?-?-?-?-?-?- 143 37 1 -?-?-?-?-?-?-?-?-?-?-?-?- 50 -2 JV- pt is tearful stating that she has been lyubov for days and has pain over her incision. She is scheduled for a repeat section on 01/18. she also has been bleeding on and off. sending to L&D now for repeat section due to pain over her incision site and suspicion for labor and to prevent uterine rupture. NST FHR Rate Baby A Baseline: 140 Variability:: Moderate Accelerations:: 15 x 15 Decelerations:: None NST Reactive:: Yes FHR Category:: Category I Uterine Activity:: q3-5 ROS Constitutional Constitutional: Reports systems reviewed and no addt'l complaints, except as documented ENT HEENT: Reports systems reviewed and no addt'l complaints, except as documented Cardiovascular Cardiovascular: Reports systems reviewed and no addt'l complaints, except as documented Respiratory/Chest Respiratory/Chest: Reports systems reviewed and no addt'l complaints, except as documented Gastrointestinal Gastrointestinal: Reports systems reviewed and no addt'l complaints, except as documented and nausea; Denies abdominal pain Genitourinary Genitourinary: Reports systems reviewed and no addt'l complaints, except as documented, contractions Details: present and frequency (regular ) and movement Details: present Musculoskeletal Musculoskeletal: Reports systems reviewed and no addt'l complaints, except as documented Integumentary Integumentary: Reports as per HPI Neurologic Neurologic: Reports systems reviewed and no addt'l complaints, except as documented Endocrine Endocrinology: Reports systems reviewed and no addt'l complaints, except as documented Vital Signs Vital Signs Vital Signs: 01/07/23 11:15 01/07/23 11:15 01/07/23 11:15 Temperature 98.4 F Temperature Source Tympanic Tympanic Pulse Rate Respiratory Rate Blood Pressure Blood Pressure Mean Blood Pressure Source Blood Pressure Position Blood Pressure Location Pulse Ox Oxygen Delivery Method 01/07/23 11:15 01/07/23 11:49 Temperature 98.4 F 98.4 F Temperature Source Temporal Pulse Rate 111 H Respiratory Rate 18 Blood Pressure 118/59 L Blood Pressure Mean 78 Blood Pressure Source Monitor Blood Pressure Position Semi-Fowlers Blood Pressure Location Right Arm Pulse Ox 100 Oxygen Delivery Method Room Air Weight Weight: 177 lb Body Mass Index (BMI) 33.4 Physical Exam Const alert, oriented x3 and healthy appearing Constitutional Narrative: uncomfortable with contractions HEENT normocephalic and moist oral mucous membranes Head and Scalp: atraumatic Neck full ROM, no lymphadenopathy, supple and thyroid normal General: trachea midline Thyroid: thyroid normal Lymph Lymphatic: no lymphadenopathy noted Chest inspection of chest normal Resp normal respiratory effort Cardio regular rate GI normal to inspection, nondistended, normoactive bowel sounds, soft to palpation and non-tender Inspection: gravid external exam normal Narrative: incisional tenderness on exam Bimanual Exam - Vag & Uterus: Negative for uterus non-tender Manual OB Exam: estimated gestational size appropriate, presentation cephalic, dilated, effaced and station Extremity normal to inspection General Extremity: Negative for edema Skin no rashes or lesions noted Neuro deep tendon reflexes 2+ bilaterally Motor Exam: strength 5/5 throughout and clonus absent Psych mental status grossly normal Labs Labs Labs: Blood Type O NEGATIVE Antibody Screen POSITIVE Hct 33.8 % (37-47) L Hgb 11.7 g/dL (12.0-15.0) L Obstetrics US Syphilis Total Ab Non-reactive Rubella IgG Antibody Reactive (Nonreactive) Hep Bs Antigen Non-Reactive (Nonreactive) Chlamydia DNA ([place]) Negative (Negative) Neisseria gonorrhoeae DNA ([place]) Negative (Negative) HIV 1&2 Antibody Non-Reactive (Nonreactive) Glucose 1 Hr 50 gm 115 mg/dL (70-140) Group B Strep DNA Negative (Negative) Rhogam given: No Miscellaneous Test Assessment & Plan (1) Abdominal pain: COMMENT: recommend proceeding with RLTCS immediately due to abdominal pain and incisional tenderness (2) Irregular contractions: (3) Sterilization: COMMENT: plan BS at time of cs (4) Nausea vomiting and diarrhea: COMMENT: IV fluid infusion 10/14/2022 zofran PRN (5) Depression: COMMENT: zoloft. counseling encouraged. (6) Rh negative state in antepartum period: COMMENT: Rhogam @ 28 weeks & PRN bleeding, antibody id titer given 10/30/22 (7) : QUALIFIERS: Weeks of gestation: 38 weeks Qualified Code(s): Z3A.38 - 38 weeks gestation of COMMENT: GBS negative. NIPT low risk, discussed carrier testing, anatomy nl, 09/22 nl cervical length (8) Supervision of high risk , antepartum: COMMENT: [id number], HAILEY 01/23/23, boy, ZARA Spivey Barney (9) Hx of section: COMMENT: pushed 8 hrs, shoulder dystocia, zavanelli maneuver, plan RLTCSBS scheduled for 01/18 @ 7:10a with SM (10) History of cephalopelvic disproportion in prior , currently : COMMENT: plan RLTCS (11) GERD (gastroesophageal reflux disease): COMMENT: protonix PRN PLAN: Plan proceed with RLTCS and BS
--- NOTE | 2023-01-07 12:36 | EX.PCM.OBRPT ---
Assessment & Plan (1) Abdominal pain: COMMENT: recommend proceeding with RLTCS immediately due to abdominal pain and incisional tenderness (2) Irregular contractions: (3) Sterilization: COMMENT: plan BS at time of cs (4) Nausea vomiting and diarrhea: COMMENT: IV fluid infusion 10/14/2022 zofran PRN (5) Depression: COMMENT: zoloft. counseling encouraged. (6) Rh negative state in antepartum period: COMMENT: Rhogam @ 28 weeks & PRN bleeding, antibody id titer given 10/30/22 (7) : QUALIFIERS: Weeks of gestation: 38 weeks Qualified Code(s): Z3A.38 - 38 weeks gestation of COMMENT: GBS negative. NIPT low risk, discussed carrier testing, anatomy nl, 09/22 nl cervical length (8) Supervision of high risk , antepartum: COMMENT: [id number], HAILEY 01/23/23, boyZARA Barney (9) Hx of section: COMMENT: pushed 8 hrs, shoulder dystocia, zavanelli maneuver, plan RLTCSBS scheduled for 01/18 @ 7:10a with SM (10) History of cephalopelvic disproportion in prior , currently : COMMENT: plan RLTCS (11) GERD (gastroesophageal reflux disease): COMMENT: protonix PRN (12) delivery delivered: COMMENT: RLTCS BS SM abdominal pain 37 Chauncey Maternal Data Information HAILEY Calculator Estimated Delivery Date Method Current WG Current Estimate 01/23/23 Ultrasound #1 37w 5d Other Estimates 01/16/23 LMP (Certain) 38w 5d Final HAILEY Source: LMP Details Operative Information Pre-Operative Diagnosis: Previous Post-Operative Diagnosis: same Indications for : Repeat Elective Indications Narrative: Surgeon: Shelia Mills MD Classification: Scheduled Procedure Type: low transverse Type of Anesthesia: Spinal Special Medications: none Antibiotic Given: Ancef 2 grams IV x1 Drain: Smith to straight drain Fluids Replaced: crystalloid Findings Description of Procedure: due to acute lower abdominal pain around the incision and regular ctx, decision was made to proceed with immediate delivery. Spinal anesthesia was placed without difficulty. Smith catheter was placed. The patient was placed in the dorsal supine position with leftward tilt. Patient was prepped and draped in the normal sterile fashion. Pfannenstiel skin incision was made with the scalpel and carried through to the underlying layer of fascia with the scalpel. Fascia was nicked in the midline and the incision extended laterally. The rectus bellies were dissected off superiorly and inferiorly with out complication both sharply and bluntly. The peritoneum was entered digitally. uterus was noted to be intact but on extreme stretch over the left lower uterine segment where the head was located. The incision was stretched and a low transverse uterine incision was made with the scalpel. The 's head was delivered atraumatically followed by the anterior and posterior shoulders without complication the rest of the infant delivered. The cord was clamped and cut and the was handed off to awaiting nurse. The placenta was delivered spontaneously immediately following and was noted to be intact and have a three-vessel cord. The uterus was exteriorized cleared of all clots and debris, and the incision was closed in a single layer closure using #1 Monocryl. The ovaries and fallopian tubes were noted to be within normal limits. Patient had desired sterilization and was counseled preoperatively regarding irreversibility and permanency. Therefore bilateral fallopian tubes were elevated and transected across using a LigaSure device starting proximally to distally without complication the entire fallopian tubes were removed. The uterus was returned to the maternal abdomen and gutters were cleared of all clots and debris. The peritoneum was closed with 3-0 Monocryl in a running fashion. Gloves were changed prior to fascial closure. Fascia was closed with 0 PDS in a running fashion. Subcutaneous tissue was copiously irrigated and the skin was closed with 3-0 Monocryl in a subcuticular fashion. Mepilex dressing was applied without complication. Patient was taken to recovery in stable condition. Amniotic Membrane Rupture Type: Artificial Amniotic Fluid Description: Clear Placenta Disposition: [facility] Cord Vessel Description: 3 Vessels Delayed Cord Clamping: Yes Complications Risks of Surgery Discussed w/Patient: Bleeding, Infection, Need for Future C-Sections and Injury to surrounding structure(s) including bowel and bladder Vaginal Delivery Operative Information Pre-Operative Diagnosis: see a/p diagnoses Post-Operative Diagnosis: same Surgery / Procedure Performed: Spontaneous Vaginal Delivery Type of Anesthesia: Epidural Special Medications: none Estimated Blood Loss: 200 Fluids Replaced: crystalloid Findings Description of Procedure: Patient began pushing and delivered the head in the [ERIKA] presentation. The head was delivered atraumatically [and a loose nuchal cord ?1 was identified and the infant delivered through without complication]. The anterior and posterior shoulders delivered without complication followed by the rest of the infant and the was placed on the maternal abdomen. Delayed cord clamping was employed for approximately 60 seconds. Cord was clamped and cut and gentle traction was applied to the cord and the placenta delivered spontaneously immediately following it was noted to be intact with three-vessel cord. The perineum and vagina were inspected and [noted to have a [] degree perineal laceration which was repaired in the usual fashion with 3-0 vicryl rapide.] [noted to have no laceration]. EBL was [200 cc]. Patient and infant tolerated delivery well. Amniotic Fluid Description: Clear Placental Delivery Description: Spontaneous Placenta Disposition: [facility] Cord Vessel Description: 3 Vessels Cord Entanglement: None Delayed Cord Clamping: Yes Post Vaginal Delivery Medications Given After Delivery: IV Pitocin Episiotomy Description: None Complication Complications: None Admit VTE Documentation VTE Present on Admission: No VTE Mechan Device Prophylaxis: SCD's Multi Select Codes Urinary/Genital Urinary/Genital CPT Codes: 95914 C/S+TL and 98755 Delivery [facility]
--- NOTE | 2023-01-07 12:54 | FALS_PTH ---
PATIENT: VICTOR MANUEL CLEMENTE LOC: [facility] U#:[id number] AGE/SX: 27/F ROOM: WP007 RE01/07/[address]: Dr. Rachana Khanna DO : 1995 BED: 1 DIS: 01/08/2023 SPEC #: [id number] RECD: 01/08/23 09:16 STATUS: CHRIS TAYLER #: [id number] LAUREN: 01/07/23 12:[address]: Rachana Khanna DEPT: SURGICAL PATHOLOGY RECD BY: Bree Rabago Tissues: A - Fallopian tube B - Perineum, NOS Procedures: Decalcification bone/plaque Surgery Specimen Level II Surgery Specimen Level IV HEADER OPERATION: Tubal ligation PRE-OP DIAGNOSIS: Sterilization TISSUE SUBMITTED: A - Fallopian tubes, B - Tissue perineal adhesion MICROSCOPIC DIAGNOSIS A. Right fallopian tube, salpingectomy: Complete cross-section of fallopian tube with benign paratubal cyst. Left fallopian tube, salpingectomy: Complete cross-section of fallopian tube with no pathologic change. B. Perineal adhesion tissue, excision: Fibrous tissue with foreign body giant cell reaction to nonpolarizable yellow material with calcific change. See comment. AM:isabella 01/14/2023 COMMENT C. Focus of fat necrosis is a possibility. Iron stain with matched control is negative for iron. Clinical correlation is suggested. Case has been reviewed in consultation with Dr. Gutierrez who concurs with the above diagnosis. IDC:[id number] MICROSCOPIC DESCRIPTION Slides are reviewed. GROSS DESCRIPTION A - Received in fixative is one container labeled with the patient's name and designated bilateral fallopian tubes, suture in right. The specimen consists of two fallopian tubes. Left fallopian tube with fimbrial end measures 6.0 cm in length and 1.0 cm in diameter. The right fallopian tube does not show any fimbrial end and measures 6.0 cm in length and 0.5 cm in diameter. A paratubal cyst is noted measuring 1.0 cm in greatest dimension. Sections reveal unremarkable cut surfaces. [employer] sections are submitted in two cassettes as follows: 1 - left fallopian tube with fimbrial end, 2 - right fallopian tube without fimbrial end and paratubal cyst. B - Received is one container labeled with the patient's name and not further designated. The specimen consists of multiple irregular fragments of light yao soft tissue with gritty sensation that in aggregate measure 1.0 x 0.6 x 0.1 cm. The specimen is totally submitted in one cassette after decalcification. / TWILA:isabella 01/08/2023 TC:5 CPT: 78705 x2, 93218, 24368, 74948
[2023-01-07] MEDS: Oxytocin 15 Units/NS 250ml 15 UNITS/250 ML IV.SOLN 83 UNITS IV (13:40)
[2023-01-07 14:16] LABS: Pathology Specimen OB SEE PATHOLOGY REPORT
[2023-01-07] MEDS: Ketorolac 30 MG/ML Syringe IV ×2 (14:55→21:14)
[2023-01-07] MEDS: Lactated Ringers 1,000 ML 100 ML IV (16:56)
[2023-01-07] MEDS: Ondansetron 4 MG/2 ML Vial IV (19:38)
--- NOTE | 2023-01-07 21:24 | DCINST_ITS ---
Discharge Instructions Diet Discharge Diet: No restrictions Activity Discharge Activity: May Not Drive (for 2 weeks or while taking narcotic pain medications.), May Shower and May Take a Tub Bath (in 7 days) May shower in (days): 0 May resume sexual activity in: 4-6 weeks Weight Bearing Status: Full weight bearing Lifting Restrictions: 20 pounds Dressing / Incision Call your doctor if your incision/area has: Continuous Slow Oozing, Sudden Increased Bleeding, Increased Pain/ Swelling, Increased Redness and Foul Smelling Discharge Call your doctor if you observe: Fever of 101 or Higher and Using more than 1 pad per hour (for 2 hours) Suture Line Care: Avoid Pulling/Pushing and Avoid Pinching/Bending Cleanse incision/area with: Soap & Water and Keep Dressing Clean & Dry Follow Up Care Please Follow Up With: Shelia Mills MD When: Call [phone] to make an appointment for an incision check in 1-2 weeks. Test Results: Test results from this visit will be discussed in further detail at your follow- up appointment, if applicable. Discharge Plan Admission Admit Date/Time: 01/07/23 11:10 Attending Provider: Rachana Khanna Discharge Orders/Prescriptions Prescriptions: New oxycodone-acetaminophen [Percocet] 5-325 mg tablet 1 tab PO Q6H PRN (Reason: pain) 7 Days Qty: 20 0RF naproxen 250 mg tablet 250 - 500 mg PO Q8H PRN PRN (Reason: MILD PAIN) Qty: 30 1RF Continued PNV-[place] 28-1-300 mg capsule 1 cap PO DAILY sertraline 100 mg tablet 100 mg PO DAILY Qty: 30 12RF Disposition Disposition (needs filled in before D/C Order can be placed): Home, Self Care
[2023-01-08] VITALS: BP 102/44; PULSE 66; RESP 16; TEMP 36.6; O2SAT 97
[2023-01-08] MEDS: Enoxaparin 40 MG/0.4 ML Syringe SC (01:08)
[2023-01-08] MEDS: Ketorolac 30 MG/ML Syringe IV (03:06)
[2023-01-08] MEDS: 0.9% Saline Lock 10 ML Syringe IV (03:07)
[2023-01-08 03:14] VITALS: BP 92/43; PULSE 57; RESP 16; O2SAT 95
[2023-01-08 05:39] LABS: Hematocrit 31.2 % (37-47); Hemoglobin 10.2 g/dL (12.0-15.0); Mean Corp Hgb Conc 32.7 g/dL (32-36); Mean Corpuscular Hgb 29.3 pg (27.0-32.0); Mean Corpuscular Volume 89.7 fL (81-99); Mean Platelet Vol. 10.1 fl (6.2-12.0); Platelet Count 284 K/mm3 (150-450); RBC Distribution Width CV 12.7 % (11.6-14.6); RBC Distribution Width SD 41.1 fl (35.1-43.9); Red Blood Count 3.48 M/mm3 (4.2-5.4); White Blood Count 17.1 K/mm3 (4.4-11.0)
[2023-01-08] MEDS: Acetaminophen 500 MG Tablet 1000 MG PO (06:17)
--- NOTE | 2023-01-08 07:25 | PN.OBGYN_ITS ---
Subjective Subjective Patient doing well without complaints. Tolerating PO. Ambulating and voiding without difficulty. feeding well. Denies chest pain, shortness of breath, calf pain/swelling, fevers, chills, lightheadedness. Objective Data Objective Data Vital Signs: Vital Signs Temp Pulse Resp BP Pulse Ox O2 Del Method 97.9 F 57 L 16 92/43 L 95 Room Air 01/08/23 00:00 01/08/23 03:14 01/08/23 03:14 01/08/23 03:14 01/08/23 03:14 01/08/23 03:14 Oxygen Delivery Method Room Air Weight: 177 lb Body Mass Index (BMI) 33.4 Intake & Output: Intake and Output for Last 24 Hours 01/06/23 01/07/23 01/08/23 23:59 23:59 23:59 Intake Total 2757.50 / 2757.50 Output Total 1700 / 1700 550 / 550 Balance 1057.50 / 1057.50 -550 / -550 Lab / Micro Data 01/08/23 05:30 Labs: Laboratory Results - last 24 hr 01/07/23 11:25: WBC 9.5, RBC 3.90 L, Hgb 11.7 L, Hct 33.8 L, MCV 86.7, MCH 30.0, MCHC 34.6, RDW Std Deviation 40.3, RDW Coeff of Allyson 12.9, Plt Count 287, MPV 10.2, Immature Gran % (Auto) 0.500, Neut % (Auto) 72.8 H, Lymph % (Auto) 20.4, [place] % (Auto) 5.7, Eos % (Auto) 0.2, Baso % (Auto) 0.4, Absolute Neuts (auto) 6.9, Absolute Lymphs (auto) 1.93, Nucleated RBC % 0, Syphilis Total Ab Non- reactive, Blood Type O NEGATIVE, Antibody Screen NEGATIVE 01/07/23 16:05: Screen NEGATIVE, Baby's Blood Type O POSITIVE, Baby's PREETI NEGATIVE 01/08/23 05:30: WBC 17.1 H, RBC 3.48 L, Hgb 10.2 L, Hct 31.2 L, MCV 89.7, MCH 29.3, MCHC 32.7 D, RDW Std Deviation 41.1, RDW Coeff of Allyson 12.7, Plt Count 284, MPV 10.1 ROS Constitutional Constitutional: Reports systems reviewed and no addt'l complaints, except as documented Cardiovascular Cardiovascular: Reports systems reviewed and no addt'l complaints, except as documented Respiratory/Chest Respiratory/Chest: Reports systems reviewed and no addt'l complaints, except as documented Gastrointestinal Gastrointestinal: Reports systems reviewed and no addt'l complaints, except as documented Physical Exam Const alert, oriented x3 and no apparent distress HEENT Head and Scalp: atraumatic Resp normal respiratory effort Assessment & Plan (1) delivery delivered: COMMENT: RLTCS BS SM abdominal pain 37 Chauncey (2) Rh negative state in antepartum period: COMMENT: Rhogam @ 28 weeks & PRN bleeding, antibody id titer given 10/30/22 PLAN: Plan s/p LTCS PPD # 1 1. routine post care 2. breast feeding- support given 3. rh negative 4. rubella immune
[2023-01-08 08:00] VITALS: BP 105/53; PULSE 70; RESP 16; TEMP 36.5
== END 2023-01-08 08:20 | disposition home or self-care (01) | DRG 785 ==
PROVIDERS: Obstetrics & Gynecology; Admitting Provider Obstetrics & Gynecology; Referring Provider Obstetrics & Gynecology; Visit Provider Obstetrics & Gynecology
DX: O34.219 Maternal care for unspecified type scar from previous cesarean delivery (principal); F32.A Depression, unspecified; K21.9 Gastro-esophageal reflux disease without esophagitis; Z30.2 Encounter for sterilization; O69.81X0 Labor and delivery complicated by cord around neck, without compression, not applicable or unspecified; O99.62 Diseases of the digestive system complicating childbirth; O99.344 Other mental disorders complicating childbirth; Z37.0 Single live birth; Z67.91 Unspecified blood type, Rh negative; O26.893 Other specified pregnancy related conditions, third trimester
CPT/HCPCS: 59025; 59050; 85025; 85027; 85461; 86780; 86850; 86900; 86901; 88302; 88305; 88311; 99221; J7120; A4216; G0378; J2405; J2790